=== PATIENT | female | born 1955 | race Caucasian/White ===

== ENCOUNTER 2021-02-08 09:24 | Outpatient (REF) | payer MEDICARE, MEDICAID, SELFPAY ==
[2021-02-08 11:39] LABS: Estimated Average Glucose 114 mg/dL; Hemoglobin A1c % 5.6 %
[2021-02-08 11:43] LABS: Alanine Aminotransferase 12 U/L (0-31); Anion Gap 19 (12-20); Aspartate Amino Transferase 15 U/L (5-31); Blood Urea Nitrogen 17 mg/dL (9-16); Carbon Dioxide 22 mmol/L (22-29); Chloride 104 mmol/L (96-108); Cholesterol 197 mg/dL; Estimated Glomerular Filt Rate > 60; Glucose Fasting 109 mg/dL (60-99); HDL Cholesterol 60 mg/dL; LDL Cholesterol Calculated 118 mg/dl; Potassium 4.8 mmol/L (3.3-5.1); Sodium 140 mmol/L (135-145); Triglycerides 97 mg/dL
[2021-02-08 12:06] LABS: Vitamin D 25-OH Total 24.8 ng/mL (>30)
== END 2021-02-08 09:25 | disposition home or self-care (01) ==
LOC: HO.HMGCLDS 09:24
PROVIDERS: PCP Internal Medicine; Visit Provider Internal Medicine
DX: I10 Essential (primary) hypertension (principal); R73.01 Impaired fasting glucose; E78.5 Hyperlipidemia, unspecified; E55.9 Vitamin D deficiency, unspecified; K58.0 Irritable bowel syndrome with diarrhea; F41.9 Anxiety disorder, unspecified
CPT/HCPCS: 36415; 80048; 80061; 82306; 83036; 84450; 84460

== ENCOUNTER 2021-03-15 08:16 | Outpatient (REF) | payer MEDICARE, MEDICAID, SELFPAY ==
--- NOTE | 2021-03-15 08:26 | ECG_ITS ---
Test Reason : HTN Blood Pressure : / mmHG Vent. Rate : 090 BPM Atrial Rate : 090 BPM P-R Int : 172 ms QRS Dur : 096 ms QT Int : 382 ms P-R-T Axes : 040 032 -01 degrees QTc Int : 467 ms Normal sinus rhythm Normal ECG When compared with ECG of 05-APR-2016 12:14, No significant change was found Referred By: Yasmin Wagner Electronically Signed By:CHRISSY DAI
[2021-03-15 09:22] LABS: MANUAL DIFF FLAG NO
[2021-03-15 09:30] LABS: Basophils Percent Auto 0.6 % (0-2); Eosinophils Absolute Auto 0.1 X10*3/uL (0.0-0.4); Eosinophils Percent Auto 0.8 % (0-4); Hematocrit 41.6 % (37-47); Hemoglobin 12.7 g/dl (12.0-16.0); Imm Gran Abs Auto 0.02 X10*3/uL (0.00-0.03); Imm Gran Pct Auto 0.3 % (0.0-0.4); Lymphocytes Absolute Auto 1.8 X10*3/uL (1.2-4.9); Lymphocytes Percent Auto 28.2 % (20-40); Mean Corpuscular HGB Conc 30.5 g/dl (31.0-35.0); Mean Corpuscular Hemoglobin 29.1 pg (27.0-33.0); Mean Corpuscular Volume 95.2 fL (80-98); Mean Platelet Volume 10.9 fL (9.4-12.3); Monocytes Absolute Auto 0.5 X10*3/uL (0.1-1.2); Monocytes Percent Auto 7.5 % (2-11); Neutrophils Absolute Auto 4.1 X10*3/uL (2.0-8.3); Neutrophils Percent Auto 62.6 % (45-73); Platelet Count 280 X10*3/uL (160-400); Red Blood Count 4.37 X10*6/uL (4.20-5.50); Red Cell Distribution Width 13.3 % (11.0-16.0); White Blood Count 6.5 X10*3/uL (4.8-10.8)
[2021-03-15 10:00] LABS: Anion Gap 16 (12-20); Blood Urea Nitrogen 18 mg/dL (9-16); Calcium 9.7 mg/dL (8.4-10.2); Carbon Dioxide 25 mmol/L (22-29); Chloride 104 mmol/L (96-108); Estimated Glomerular Filt Rate > 60; Glucose Fasting 114 mg/dL (60-99); Sodium 140 mmol/L (135-145)
[2021-03-15 10:07] LABS: Estimated Average Glucose 117 mg/dL; Hemoglobin A1c % 5.7 %
== END 2021-03-15 08:17 | disposition home or self-care (01) ==
LOC: HO.LAB 08:16
PROVIDERS: PCP Internal Medicine; Visit Provider Internal Medicine
DX: Z01.818 Encounter for other preprocedural examination (principal); I10 Essential (primary) hypertension; R73.01 Impaired fasting glucose; G47.33 Obstructive sleep apnea (adult) (pediatric)
CPT/HCPCS: 36415; 80048; 83036; 85025; 93005

== ENCOUNTER 2021-06-01 08:04 | Outpatient (REF) | payer MEDICARE, MEDICAID, SELFPAY ==
--- NOTE | ~2021-06-01 | XR_ITS ---
EXAMINATION: XR KNEE, LEFT XR KNEE, RIGHT XR KNEES, STANDING CLINICAL INFORMATION: Pain. COMPARISON: 02/15/2019 TECHNIQUE: AP standing view of both knees as well as patellar and lateral views of each knee. FINDINGS: There is again noted to be severe degenerative change of both knees with narrowing of the medial joint space compartments to a large degree with marginal spurring, left greater right. No acute fracture or dislocation is evident. There is significant narrowing with prominent spurring of the left patellofemoral joint. No left knee effusion. There is prominent spurring with some joint space narrowing involving the right patellofemoral. No effusion. XR/XR knee standing BI IMPRESSION: Stable significant tricompartment degenerative change each knee as described.
--- NOTE | ~2021-06-01 | XR_ITS ---
EXAMINATION: XR KNEE, LEFT XR KNEE, RIGHT XR KNEES, STANDING CLINICAL INFORMATION: Pain. COMPARISON: 02/15/2019 TECHNIQUE: AP standing view of both knees as well as patellar and lateral views of each knee. FINDINGS: There is again noted to be severe degenerative change of both knees with narrowing of the medial joint space compartments to a large degree with marginal spurring, left greater right. No acute fracture or dislocation is evident. There is significant narrowing with prominent spurring of the left patellofemoral joint. No left knee effusion. There is prominent spurring with some joint space narrowing involving the right patellofemoral. No effusion. XR/XR knee LT 2V IMPRESSION: Stable significant tricompartment degenerative change each knee as described.
--- NOTE | ~2021-06-01 | XR_ITS ---
EXAMINATION: XR KNEE, LEFT XR KNEE, RIGHT XR KNEES, STANDING CLINICAL INFORMATION: Pain. COMPARISON: 02/15/2019 TECHNIQUE: AP standing view of both knees as well as patellar and lateral views of each knee. FINDINGS: There is again noted to be severe degenerative change of both knees with narrowing of the medial joint space compartments to a large degree with marginal spurring, left greater right. No acute fracture or dislocation is evident. There is significant narrowing with prominent spurring of the left patellofemoral joint. No left knee effusion. There is prominent spurring with some joint space narrowing involving the right patellofemoral. No effusion. XR/XR knee RT 2V IMPRESSION: Stable significant tricompartment degenerative change each knee as described.
== END 2021-06-01 08:05 | disposition home or self-care (01) ==
LOC: HO.HOSX 08:04
PROVIDERS: Visit Provider Orthopaedic Surgery
DX: M17.0 Bilateral primary osteoarthritis of knee (principal)
CPT/HCPCS: 20610; 73560; 73565; 99212; J1040

== ENCOUNTER 2021-12-22 13:39 | Outpatient (REF) | payer MEDICARE, MEDICAID, SELFPAY ==
--- NOTE | ~2021-12-22 | MM_ITS ---
EXAMINATION: MM SCREENING DIGITAL BREAST TOMOSYNTHESIS, BILATERAL CLINICAL INFORMATION: Screening. Asymptomatic. The lifetime risk of breast cancer based on the Tyrer-Cuzick Model is 9%. COMPARISON: Mammography: 01/16/2020, 03/28/2017, 01/20/2016 TECHNIQUE: Digital breast tomosynthesis is performed in both the craniocaudal and mediolateral oblique views along with computer-aided detection (CAD). Synthesized 2D images are generated from the tomosynthesis. Additional right MLO view is provided. FINDINGS: There are scattered areas of fibroglandular density (ACR BI-RADS breast composition Category b). There are no significant masses, abnormal calcifications, or other abnormalities. Background fibroglandular densities and scattered benign nodularity are similar to prior studies. No developing density. No significant changes. MM/MM tomosynthesis screening BI IMPRESSION: No significant changes from prior studies. ASSESSMENT: BI-RADS 2: Benign RECOMMENDATION: Routine annual mammography screening. This patient's information was entered into a reminder system with a target due date for their next mammogram.
== END 2021-12-22 13:40 | disposition home or self-care (01) ==
LOC: HO.MAMMO 13:39
PROVIDERS: PCP Internal Medicine; Visit Provider Internal Medicine
DX: Z12.31 Encounter for screening mammogram for malignant neoplasm of breast (principal)
CPT/HCPCS: 77063; 77067

== ENCOUNTER → 2022-02-14 08:55 | Outpatient (BNVA) | payer MEDICARE, MEDICAID, SELFPAY | PROVIDERS: PCP Internal Medicine; Visit Provider Physician Assistant | DX: M17.0 Bilateral primary osteoarthritis of knee (principal) | CPT/HCPCS: 20610; 99212; J1040 ==

== ENCOUNTER → 2022-10-03 10:32 | Outpatient (BNVA) | payer MEDICARE, MEDICAID, SELFPAY | PROVIDERS: PCP Internal Medicine; Visit Provider Orthopaedic Surgery | DX: M17.0 Bilateral primary osteoarthritis of knee (principal); E66.01 Morbid (severe) obesity due to excess calories; Z68.43 Body mass index [BMI] 50.0-59.9, adult | CPT/HCPCS: 20610; 99212; J1100 ==

== ENCOUNTER 2022-12-28 12:42 | Outpatient (REF) | payer MEDICARE, MEDICAID, SELFPAY ==
--- NOTE | ~2022-12-28 | MM_ITS ---
EXAMINATION: MM SCREENING DIGITAL BREAST TOMOSYNTHESIS, BILATERAL CLINICAL INFORMATION: Screening. Asymptomatic. Family history breast cancer, sister. The lifetime risk of breast cancer based on the Tyrer-Cuzick Model is 12%. COMPARISON: Mammography: 12/22/2021, 01/16/2020, 03/28/2017 TECHNIQUE: Digital breast tomosynthesis is performed in both the craniocaudal and mediolateral oblique views along with computer-aided detection (CAD). Synthesized 2D images are generated from the tomosynthesis. Additional right CC view is provided. FINDINGS: There are scattered areas of fibroglandular density (ACR BI-RADS breast composition Category b). There are no significant masses, abnormal calcifications, or other abnormalities. Parenchymal pattern is similar to prior studies. There is no developing density or architectural abnormality. The axilla and skin contours are unremarkable. No significant changes. MM/MM tomosynthesis screening BI IMPRESSION: No mammographic evidence of malignancy. ASSESSMENT: BI-RADS 1: Negative RECOMMENDATION: Routine annual mammography screening. This patient's information was entered into a reminder system with a target due date for their next mammogram.
== END 2022-12-28 12:43 | disposition home or self-care (01) ==
LOC: HO.MAMMO 12:42
PROVIDERS: PCP Internal Medicine; Visit Provider Internal Medicine
DX: Z12.31 Encounter for screening mammogram for malignant neoplasm of breast (principal)
CPT/HCPCS: 77063; 77067

== ENCOUNTER 2023-01-26 10:40 | Outpatient (REF) | payer MEDICARE, MEDICAID, SELFPAY ==
[2023-01-26 14:57] LABS: Alanine Aminotransferase 9 U/L (0-31); Anion Gap 17 (12-20); Aspartate Amino Transferase 15 U/L (5-31); Blood Urea Nitrogen 17 mg/dL (9-16); Calcium 9.6 mg/dL (8.4-10.2); Carbon Dioxide 24 mmol/L (22-29); Chloride 105 mmol/L (96-108); Cholesterol 195 mg/dL; Estimated Glomerular Filt Rate 59; Glucose Fasting 123 mg/dL (60-99); HDL Cholesterol 60 mg/dL; LDL Cholesterol Calculated 118 mg/dl; Potassium 4.5 mmol/L (3.3-5.1); Sodium 141 mmol/L (135-145); Triglycerides 89 mg/dL
[2023-01-26 15:13] LABS: Vitamin D 25-OH Total 24.2 ng/mL (>30)
== END 2023-01-26 10:41 | disposition home or self-care (01) ==
LOC: HO.HMGCLDS 10:40
PROVIDERS: PCP Internal Medicine; Visit Provider Internal Medicine
DX: Z00.01 Encounter for general adult medical examination with abnormal findings (principal); E66.01 Morbid (severe) obesity due to excess calories; F41.8 Other specified anxiety disorders; I10 Essential (primary) hypertension; M17.0 Bilateral primary osteoarthritis of knee; M85.852 Other specified disorders of bone density and structure, left thigh; R73.01 Impaired fasting glucose
CPT/HCPCS: 36415; 80048; 80061; 82306; 84450; 84460

== ENCOUNTER 2023-06-02 11:06 | Emergency (ER) | payer MEDICARE, MEDICAID, SELFPAY ==
--- NOTE | ~2023-06-02 | US_ITS ---
EXAMINATION: US VENOUS ULTRASOUND WITH DOPPLER LOWER EXTREMITY, BILATERAL CLINICAL INFORMATION: Pain COMPARISON: None available. TECHNIQUE: Ultrasound of the deep veins is performed from the hip to the calf with compression sonography and color and pulse Doppler assessment. Spectral analysis with color-flow imaging is performed. FINDINGS: RIGHT: There is normal venous compression and respiratory variation and augmented flow. The visualized common femoral vein, superficial femoral vein, profunda femoral vein, popliteal vein, and the trifurcation region shows no evidence of deep venous thrombosis. The peroneal was not identified limiting assessment. There is no significant popliteal fossa cyst. LEFT: There is normal venous compression and respiratory variation and augmented flow. The visualized common femoral vein, superficial femoral vein, profunda femoral vein, popliteal vein, and the trifurcation region shows no evidence of deep venous thrombosis. The peroneal vein was not identified limiting assessment. There is no significant popliteal fossa cyst. US/US venous duplex LE BI IMPRESSION: No DVT demonstrated in the visualized bilateral lower extremity, however the peroneal veins were not identified limiting evaluation. If the patient's symptoms persist, followup ultrasound in 5 days 7 days might be of value to exclude proximal propagation from a non-visualized calf vein.
--- NOTE | ~2023-06-02 | CT_ITS ---
EXAMINATION: CT ANGIOGRAM OF THE CHEST WITH AND WITHOUT CONTRAST (CT PULMONARY ANGIOGRAM FOR PE) CLINICAL INFORMATION: Shortness of breath. COMPARISON: None available. TECHNIQUE: Prior to contrast administration, noncontrast localization images were obtained. Subsequently, multidetector volumetric imaging was performed from the thoracic inlet to below the diaphragms following the administration of 75 mL Omnipaque 350 intravenous contrast. No contrast reaction reported Sagittal, coronal, and MIP oblique sagittal reformatted images were obtained on the CT workstation, uploaded to PACS, and reviewed. This CT examination was performed using dose optimization techniques as appropriate, variously including the following: *Automated exposure control *Adjustment of mA and/or kV according to patient size (this includes techniques or standardized protocols for targeted exams where dose is matched to indication/reason for exam; i.e. extremities or head) *Use of iterative reconstruction technique Total exam dose-length product 468 mGy-cm FINDINGS: QUALITY OF STUDY/CONTRAST BOLUS: Suboptimal. PULMONARY ARTERIES: Evaluation is somewhat limited due to patient body habitus and motion. No central pulmonary emboli. No large segmental pulmonary emboli. THORACIC AORTA: No aneurysm. LUNG: Small focal airspace opacity in the posterior right lower lobe, axial image 226 series 6. 0.2 cm solid pulmonary nodule in the right middle lobe, axial image 191 series 6. Small calcified granuloma in the right upper lobe. 0.8 cm pleural-based nodule in the left apex, axial image 18 series 6. No dense consolidation or significant groundglass disease. Dependent subsegmental atelectasis. Central airways are patent. PLEURA: No pleural effusion or pneumothorax. MEDIASTINUM: Cardiomegaly. No mediastinal or hilar lymphadenopathy. No pericardial effusion. CORONARY ARTERY CALCIFICATION: Coronary artery calcifications are seen. CHEST WALL/AXILLA: No axillary or internal mammary lymphadenopathy. OSSEOUS STRUCTURES: No acute or suspicious osseous abnormality. UPPER ABDOMEN: Decreased attenuation of liver parenchyma suggesting hepatic steatosis. There is a 2.8 cm simple cyst in the posterior right hepatic lobe. Heterogeneous attenuation of the spleen, likely physiologic related with early timing of IV contrast postsurgical changes from gastric sleeve with a small to moderate size hiatal hernia. No reflux of contrast into the hepatic veins to suggest elevated right heart pressures. CT/CT angio chest PE protocol IMPRESSION: 1. Evaluation is somewhat limited due to patient body habitus and motion. However, accounting for these limitations, no central pulmonary emboli nor large segmental emboli are identified. 2. Small focal airspace opacity in the posterior right lower lobe is likely related with atelectasis and motion artifact, however an early infiltrate cannot be excluded in the appropriate clinical context. 3. Solid pulmonary nodules, largest in the left apex measuring 0.8 cm. Assuming patient has no history of malignancy, recommend follow-up per Fleischner Society recommendations. According to the UPDATED 2017 Fleischner Society recommendations, the advised followup imaging for multiple solid nodules, the largest measuring 6 mm or greater, is: LOW RISK PATIENT: CT at 3-6 months, then consider CT at 18-24 months. HIGH RISK PATIENT: CT at 3-6 months, then at 18-24 months. 4. Cardiomegaly. 5. Hepatic steatosis. 6. Small to moderate size hiatal hernia with postoperative changes from prior gastric sleeve procedure. VTE: negative
--- NOTE | 2023-06-02 11:09 | ECG_ITS ---
Test Reason : CP Blood Pressure : / mmHG Vent. Rate : 098 BPM Atrial Rate : 098 BPM P-R Int : 182 ms QRS Dur : 098 ms QT Int : 358 ms P-R-T Axes : 043 008 007 degrees QTc Int : 457 ms Normal sinus rhythm Normal ECG When compared with ECG of 15-MAR-2021 08:45, No significant change was found Referred By: Generic ED Physician Electronically Signed By:Clifford Wills
[2023-06-02 12:36] VITALS: BP 159/80; PULSE 96; RESP 23; O2SAT 97; BMI 54.7
[2023-06-02 12:41] VITALS: PULSE 97; RESP 22; O2SAT 96
[2023-06-02 13:44] LABS: MANUAL DIFF FLAG NO
[2023-06-02 13:49] LABS: Basophils Percent Auto 0.4 % (0-2); Hematocrit 40.4 % (37.0-47.0); Hemoglobin 12.4 g/dl (12.0-16.0); Imm Gran Abs Auto 0.03 X10*3/uL (0.00-0.03); Imm Gran Pct Auto 0.3 % (0.0-0.4); Lymphocytes Absolute Auto 1.1 X10*3/uL (1.2-4.9); Lymphocytes Percent Auto 11.1 % (20-40); Mean Corpuscular HGB Conc 30.7 g/dl (31.0-35.0); Mean Corpuscular Hemoglobin 27.8 pg (27.0-33.0); Mean Corpuscular Volume 90.6 fL (80.0-98.0); Mean Platelet Volume 10.8 fL (9.4-12.3); Monocytes Absolute Auto 0.5 X10*3/uL (0.1-1.2); Monocytes Percent Auto 4.8 % (2-11); Neutrophils Absolute Auto 8.6 x10*3/uL (2.0-8.3); Neutrophils Percent Auto 83.4 % (45-73); Platelet Count 279 X10*3/uL (160-400); Red Blood Count 4.46 X10*6/uL (4.20-5.50); Red Cell Distribution Width 13.7 % (11.0-16.0); White Blood Count 10.3 X10*3/uL (4.8-10.8)
[2023-06-02 13:57] LABS: INTERNATIONAL NORM RATIO 1.1 (0.9-1.1)
[2023-06-02 13:59] LABS: Partial Thromboplastin Time 33.7 SEC (26.0-36.4)
[2023-06-02 14:05] LABS: Alanine Aminotransferase 10 U/L (0-31); Albumin Level 3.9 g/dL (3.5-5.0); Alkaline Phosphatase 73 U/L (39-117); Anion Gap 13 (12-20); Aspartate Amino Transferase 14 U/L (5-31); Bilirubin Total 0.3 mg/dL (0.0-1.0); Blood Urea Nitrogen 17 mg/dL (9-16); Calcium 9.5 mg/dL (8.4-10.2); Carbon Dioxide 24 mmol/L (22-29); Chloride 105 mmol/L (96-108); Creatinine Clr Calc Pharmacy 94.4; Estimated Glomerular Filt Rate > 60; Glucose Random 118 mg/dL (60-115); Magnesium 2.1 mg/dL (1.6-2.6); Potassium 4.4 mmol/L (3.3-5.1); Sodium 138 mmol/L (135-145); Total Protein 7.4 g/dL (6.5-8.0)
[2023-06-02 14:25] LABS: Troponin-I High Sensitivity < 2.7 ng/L (<3.5-17.0)
[2023-06-02 16:24] VITALS: BP 129/77; PULSE 90; RESP 18; TEMP 36.2; O2SAT 94
--- NOTE | 2023-06-02 16:49 | ED.GENADULT ---
HPI - General Adult General Chief complaint: Dyspnea Stated complaint: irregular heartbeat Time Seen by Provider: 06/02/23 16:01 Source: patient, RN notes reviewed and old records reviewed Mode of arrival: ambulatory Limitations: no limitations History of Present Illness HPI narrative: 68-year-old female with past medical history significant for morbid obesity, hypertension, obstructive sleep apnea presents for evaluation of shortness of breath The patient reports that she was feeling short of breath earlier. She has a ?heart rate monitor at home. She states that it was climbing a she had an abnormal rhythm or a fast rhythm and recommend that she call her doctor The patient called her doctor and was referred to emergency department The time of my evaluation she states that she occasionally has some shortness of breath but overall feels well She does admit to increased shortness of breath when lying flat on her back She denies any chest pain Patient does admit to increased left leg swelling for the last 2-3 days And a history of DVT/PE or risk factors for same Related Data Home Medications Medication Instructions Recorded Confirmed cholecalciferol (vitamin D3) 25 25 mcg PO DAILY 02/16/21 12/27/21 mcg (1,000 unit) capsule dicyclomine 10 mg capsule 10 mg PO QID PRN IBS 03/29/21 12/27/21 glucosamine HCl PO 06/01/21 12/27/21 Previous Rx's Medication Instructions Recorded citalopram 20 mg tablet 20 mg PO DAILY #90 tabs 03/16/23 lisinopril 20 mg tablet 20 mg PO QAM #90 tabs 04/10/23 Allergies Allergy/AdvReac Type Severity Reaction Status Date / Time codeine [CODEINE] Allergy Severe NAUSEA & Verified 01/26/23 10:09 SEVERE VOMITING, stomach upset Review of Systems Constitutional: Constitutional: Reports as per HPI, Denies chills, Denies fatigue, Denies fever(s) and Denies headache(s) ENT: Denies headache(s) Respiratory: Respiratory: Denies cough Gastrointestinal: Gastrointestinal: Denies abdominal pain, Denies constipation and Denies vomiting Genitourinary: Genitourinary: Denies dysuria Neurologic: Denies headache(s) and Denies focal weakness Endocrine: Endocrine: Denies fatigue [facility] Past Medical History Medical History (Updated 06/02/23 @ 18:14 by [place]) Cataracts, bilateral Essential hypertension History of COVID-19 Impaired fasting glucose Mixed anxiety and depressive disorder Morbid obesity due to excess calories DENISE (obstructive sleep apnea) Osteopenia of left hip Vitamin D deficiency Surgical History History of total hip replacement Hx of gastric bypass Family History Family History Father No problems noted. Mother No problems noted. Maternal Aunt Mental health disorder Social History Social History Housing: House Alcohol intake: never Patient Tobacco Use Status: Never used Tobacco Smoked in Last 30 Days: No e-Cigarette/Vaping Use: Never Used Use of substances other than those prescribed or required for medical reasons: No Advance Directives: No service: No Current occupational status: retired Cognitive needs: No Hearing needs: No Vision needs: No Physical Exam ED Vital Signs: Vital Signs - 24 hr 06/02/23 12:36 06/02/23 12:41 06/02/23 16:24 Temperature 97.1 F Pulse Rate 96 97 90 Respiratory Rate 23 H 22 H 18 Blood Pressure 159/80 H 129/77 Pulse Oximetry 97 96 94 Oxygen Delivery Method Room Air Room Air Room Air BMI result Body Mass Index 54.7 Const General: healthy appearing, comfortable, no acute distress, alert and awake Nutritional Appearance: well nourished Orientation/consciousness: patient oriented x3 HENMT Head: Yes normocephalic and Yes atraumatic Eyes Eyelids: Yes eyelids normal Conjunctivae: conjunctivae normal Sclerae: sclerae normal Corneas: corneas normal Pupils: Equal, round and reactive pupils present EOM: EOMs intact bilaterally Neck Neck: Yes full ROM Resp Effort & Inspection: normal respiratory effort, able to speak in complete sentences, no audible wheezes and not labored Auscultation: clear to auscultation bilaterally Cardio Rate: regular rate Rhythm: regular rhythm Skin General skin exam: elasticity normal Neuro General: patient oriented x3 Cranial nerves: Yes Equal, round and reactive pupils present and Yes Bilaterally intact EOM present Cognition (Neuro): normal cognition Extrem Other: Moving all extremities well without any obvious deformities Course Reevaluation(s) Reevaluation #1: Patient's ultrasound negative for DVT, the chest CT did not show any evidence of PE. His lung 100 noted which the patient will be informed the so she can get appropriate follow-up. Time: 18:09 Medications Administered Discontinued Medications Generic Name Dose Route Start Last Admin Trade Name Pam PRN Reason Stop Dose Admin Acetaminophen 975 mg 06/02/23 16:34 06/02/23 17:12 Acetaminophen 325 Mg Tablet PO 06/02/23 16:35 975 mg ONCE ONE Administration Iohexol 100 ml 06/02/23 17:04 06/02/23 17:04 Iohexol 350 Mg/Ml 100 Ml Infus..Btl IV 06/02/23 17:05 75 ml ONCE ONE Administration Medical Decision Making Medical Decision Making [facility] Narrative: 68-year-old female past medical history significant for morbid obesity, hypertension presents for evaluation shortness of breath. She was tachycardic on arrival but her EKG was a sinus rhythm without ectopy. Patient does have unilateral swelling the left common ultrasound the lower extremities pedal get a CT of the chest given the shortness of breath, tachycardia and unilateral leg swelling. The patient's lab work was reassuring Differential Diagnosis Differential Diagnoses: The differential diagnosis associated with the presentation includes Shortness of breath Cardiac arrhythmia Atrial fibrillation Congestive heart failure PE Pneumonia Bronchitis Viral syndrome Admission/Observation Consideration of admission/observation: Escalation of care including admission/observation considered No evidence of PE and the vitals are stable, so no indication for admission at this time Lab Data [facility] Lab Attestation statement: I reviewed the patient's lab results. No significant leukocytosis with a white count of 10.3, no significant anemia. Platelet count normal of 279. Electrolytes within normal limits. BUN slightly elevated to 17 but creatinine normal at 0.85. Random glucose of 118 06/02/23 13:30 06/02/23 13:30 Labs: Lab Results 06/02/23 06/02/23 06/02/23 Range/Units 13:30 13:30 13:30 WBC 10.3 (4.8-10.8) X10*3/uL RBC 4.46 (4.20-5.50) X10*6/uL Hgb 12.4 (12.0-16.0) g/dl Hct 40.4 (37.0-47.0) % MCV 90.6 (80.0-98.0) fL MCH 27.8 (27.0-33.0) pg MCHC 30.7 L (31.0-35.0) g/dl RDW 13.7 (11.0-16.0) % Plt Count 279 (160-400) X10*3/uL MPV 10.8 (9.4-12.3) fL Immature Gran % (Auto) 0.3 (0.0-0.4) % Neut % (Auto) 83.4 H (45-73) % Lymph % (Auto) 11.1 L (20-40) % [place] % (Auto) 4.8 (2-11) % Eos % (Auto) 0.0 (0-4) % Baso % (Auto) 0.4 (0-2) % Lymph # (Auto) 1.1 L (1.2-4.9) X10*3/uL [place] # (Auto) 0.5 (0.1-1.2) X10*3/uL Eos # (Auto) 0.0 (0.0-0.4) X10*3/uL Baso # (Auto) 0.0 (0.0-0.2) X10*3/uL Abs Immat Gran (auto) 0.03 (0.00-0.03) X10*3/uL Absolute Neuts (auto) 8.6 H (2.0-8.3) x10*3/uL Absolute Nucleated RBC 0.000 (0.0-0.012) X10*3/uL Nucleated RBC % (auto) 0.0 (0.0-0.2) /100WBC PT 13.0 (10.0-13.1) SEC INR 1.1 (0.9-1.1) APTT 33.7 (26.0-36.4) SEC Sodium 138 (135-145) mmol/L Potassium 4.4 (3.3-5.1) mmol/L Chloride 105 (96-108) mmol/L Carbon Dioxide 24 (22-29) mmol/L Anion Gap 13 (12-20) BUN 17 H (9-16) mg/dL Creatinine 0.85 (0.5-1.4) mg/dL Estim Creat Clear Calc 94.4 Estimated GFR > 60 Random Glucose 118 H (60-115) mg/dL Calcium 9.5 (8.4-10.2) mg/dL Magnesium 2.1 (1.6-2.6) mg/dL Total Bilirubin 0.3 (0.0-1.0) mg/dL AST 14 (5-31) U/L ALT 10 (0-31) U/L Alkaline Phosphatase 73 (39-117) U/L Troponin I High Sens (<3.5-17.0) ng/L Total Protein 7.4 (6.5-8.0) g/dL Albumin 3.9 (3.5-5.0) g/dL 06/02/23 Range/Units 13:30 WBC (4.8-10.8) X10*3/uL RBC (4.20-5.50) X10*6/uL Hgb (12.0-16.0) g/dl Hct (37.0-47.0) % MCV (80.0-98.0) fL MCH (27.0-33.0) pg MCHC (31.0-35.0) g/dl RDW (11.0-16.0) % Plt Count (160-400) X10*3/uL MPV (9.4-12.3) fL Immature Gran % (Auto) (0.0-0.4) % Neut % (Auto) (45-73) % Lymph % (Auto) (20-40) % [place] % (Auto) (2-11) % Eos % (Auto) (0-4) % Baso % (Auto) (0-2) % Lymph # (Auto) (1.2-4.9) X10*3/uL [place] # (Auto) (0.1-1.2) X10*3/uL Eos # (Auto) (0.0-0.4) X10*3/uL Baso # (Auto) (0.0-0.2) X10*3/uL Abs Immat Gran (auto) (0.00-0.03) X10*3/uL Absolute Neuts (auto) (2.0-8.3) x10*3/uL Absolute Nucleated RBC (0.0-0.012) X10*3/uL Nucleated RBC % (auto) (0.0-0.2) /100WBC PT (10.0-13.1) SEC INR (0.9-1.1) APTT (26.0-36.4) SEC Sodium (135-145) mmol/L Potassium (3.3-5.1) mmol/L Chloride (96-108) mmol/L Carbon Dioxide (22-29) mmol/L Anion Gap (12-20) BUN (9-16) mg/dL Creatinine (0.5-1.4) mg/dL Estim Creat Clear Calc Estimated GFR Random Glucose (60-115) mg/dL Calcium (8.4-10.2) mg/dL Magnesium (1.6-2.6) mg/dL Total Bilirubin (0.0-1.0) mg/dL AST (5-31) U/L ALT (0-31) U/L Alkaline Phosphatase (39-117) U/L Troponin I High Sens < 2.7 (<3.5-17.0) ng/L Total Protein (6.5-8.0) g/dL Albumin (3.5-5.0) g/dL Independent Interpretation I performed an independent interpretation of an: EKG (Normal sinus rhythm with a rate of 98 beats per minute. No ectopy or ST changes) Radiology Impression Discussion of test interpretation with radiology: I have reviewed the radiologist's reading. (Read no evidence of PE. 8 mm pulmonary nodule) Discharge Plan Discharge Clinical Impression: Acute dyspnea Patient Disposition: Home, Self-Care Instructions: Dyspnea (ED) Additional Instructions: Your workup in the emergency department today was reassuring. Your ultrasound did not show any evidence of blood clots pain Your CT scan of your chest showed no evidence of blood clots but did show an 8 mm lung nodule This needs to be followed up with your primary doctor Follow-up with cardiology, as you did not have any irregular heartbeat in the ER but he felt from a Holter monitor Prescriptions: No Action citalopram 20 mg tablet 20 mg PO DAILY Qty: 90 1RF lisinopril 20 mg tablet 20 mg PO QAM Qty: 90 1RF cholecalciferol (vitamin D3) 25 mcg (1,000 unit) capsule 25 mcg PO DAILY dicyclomine 10 mg capsule 10 mg PO QID PRN (Reason: IBS) glucosamine HCl PO Referrals: Clifford Wills MD [Physician] - (? holter monitor for irregular heartbeat)
[2023-06-02] MEDS: iohexoL 350 MG/ML 100 ML INFUS..BTL IV (17:04)
[2023-06-02] MEDS: Acetaminophen 325 MG TABLET 975 MG PO (17:12)
== END 2023-06-02 18:24 | disposition home or self-care (01) ==
PROVIDERS: Physician Assistant Medical; Emergency Provider Emergency Medicine; PCP Internal Medicine
DX: R06.00 Dyspnea, unspecified (principal); R06.02 Shortness of breath; R00.0 Tachycardia, unspecified; R60.0 Localized edema; I10 Essential (primary) hypertension; E66.01 Morbid (severe) obesity due to excess calories; Z68.43 Body mass index [BMI] 50.0-59.9, adult; Z79.899 Other long term (current) drug therapy
CPT/HCPCS: 36415; 71275; 80053; 83735; 84484; 85025; 85610; 85730; 93005; 93970; 99284; 99285; Q9967

== ENCOUNTER → 2023-06-02 11:09 | Outpatient (BNV) | payer MEDICARE, MEDICAID, SELFPAY | PROVIDERS: Emergency Provider Emergency Medicine; PCP Internal Medicine; Visit Provider Internal Medicine Cardiovascular Disease | DX: R07.9 Chest pain, unspecified (principal) | CPT/HCPCS: 93010 ==

== ENCOUNTER 2023-06-19 10:09 | Outpatient (REF) | payer MEDICARE, MEDICAID, SELFPAY ==
--- NOTE | ~2023-06-19 | XR_ITS ---
EXAMINATION: XR KNEE STANDING BILATERAL XR KNEE RIGHT XR KNEE LEFT CLINICAL INFORMATION: Knee pain. COMPARISON: 05/02/2021. TECHNIQUE: AP standing view of both knees. Right knee, sunrise and lateral views. Left knee, sunrise and lateral views. FINDINGS: AP standing view: Large body habitus. Chronic osteoarthritis of both knees. There is chronic narrowing of medial more so than lateral tibiofemoral joint spaces with genu varus deformity. The joint space loss at the medial compartment of the left knee has worsened. Left knee: No significant change in appearance of the severe tricompartmental osteoarthritis with prominent osteophytes and subarticular sclerosis. The sunrise view shows patella to be well-positioned within the trochlear groove. No fracture or joint effusion. Right knee: Chronic severe tricompartmental osteoarthritis. As seen on the AP standing view, there is severe loss of the medial tibiofemoral joint space with zmyz-xv-zdiw contact and genu varus deformity. Otherwise, osteoarthritic deformity is not significantly changed since 06/01/2021. The patella is well-positioned within the trochlear groove. No fracture or joint effusion. XR/XR knee standing BI IMPRESSION: Chronic severe tricompartmental osteoarthritis of both knees. Findings include severe loss of medial tibiofemoral joint space of the left knee with yzmx-yk-odxb contact and genu varus deformity. Otherwise, no significant change in arthritis since 06/01/2021.
--- NOTE | ~2023-06-19 | XR_ITS ---
EXAMINATION: XR KNEE STANDING BILATERAL XR KNEE RIGHT XR KNEE LEFT CLINICAL INFORMATION: Knee pain. COMPARISON: 05/02/2021. TECHNIQUE: AP standing view of both knees. Right knee, sunrise and lateral views. Left knee, sunrise and lateral views. FINDINGS: AP standing view: Large body habitus. Chronic osteoarthritis of both knees. There is chronic narrowing of medial more so than lateral tibiofemoral joint spaces with genu varus deformity. The joint space loss at the medial compartment of the left knee has worsened. Left knee: No significant change in appearance of the severe tricompartmental osteoarthritis with prominent osteophytes and subarticular sclerosis. The sunrise view shows patella to be well-positioned within the trochlear groove. No fracture or joint effusion. Right knee: Chronic severe tricompartmental osteoarthritis. As seen on the AP standing view, there is severe loss of the medial tibiofemoral joint space with dyaj-os-gwog contact and genu varus deformity. Otherwise, osteoarthritic deformity is not significantly changed since 06/01/2021. The patella is well-positioned within the trochlear groove. No fracture or joint effusion. XR/XR knee LT 2V IMPRESSION: Chronic severe tricompartmental osteoarthritis of both knees. Findings include severe loss of medial tibiofemoral joint space of the left knee with qxez-gr-lqeb contact and genu varus deformity. Otherwise, no significant change in arthritis since 06/01/2021.
--- NOTE | ~2023-06-19 | XR_ITS ---
EXAMINATION: XR KNEE STANDING BILATERAL XR KNEE RIGHT XR KNEE LEFT CLINICAL INFORMATION: Knee pain. COMPARISON: 05/02/2021. TECHNIQUE: AP standing view of both knees. Right knee, sunrise and lateral views. Left knee, sunrise and lateral views. FINDINGS: AP standing view: Large body habitus. Chronic osteoarthritis of both knees. There is chronic narrowing of medial more so than lateral tibiofemoral joint spaces with genu varus deformity. The joint space loss at the medial compartment of the left knee has worsened. Left knee: No significant change in appearance of the severe tricompartmental osteoarthritis with prominent osteophytes and subarticular sclerosis. The sunrise view shows patella to be well-positioned within the trochlear groove. No fracture or joint effusion. Right knee: Chronic severe tricompartmental osteoarthritis. As seen on the AP standing view, there is severe loss of the medial tibiofemoral joint space with gyeo-fu-dwkr contact and genu varus deformity. Otherwise, osteoarthritic deformity is not significantly changed since 06/01/2021. The patella is well-positioned within the trochlear groove. No fracture or joint effusion. XR/XR knee RT 2V IMPRESSION: Chronic severe tricompartmental osteoarthritis of both knees. Findings include severe loss of medial tibiofemoral joint space of the left knee with hfnr-ke-xkbx contact and genu varus deformity. Otherwise, no significant change in arthritis since 06/01/2021.
== END 2023-06-19 10:10 | disposition home or self-care (01) ==
LOC: HO.HOSX 10:09
PROVIDERS: Visit Provider Orthopaedic Surgery
DX: M17.0 Bilateral primary osteoarthritis of knee (principal); E66.01 Morbid (severe) obesity due to excess calories
CPT/HCPCS: 20610; 73560; 73565; J1100

== ENCOUNTER 2023-06-19 11:25 | Outpatient (AMB) | payer MEDICARE, MEDICAID, SELFPAY ==
[2023-06-19 11:40] VITALS: BMI 54.7
--- NOTE | 2023-06-19 11:40 | MHC.OFFVIS ---
Intake Vital Signs 06/19/23 11:40 Height 5 ft 6 in Weight 339 lb BMI 54.7 Intake Visit Reasons: Ov- B/L OA of the knees last inj 10/03/22 Intake Note: Marcelino is a 68 year old female who presents today for a follow up of bilateral knee OA, Last Injection done 10/03/22. Pateint rpeorts that theese injections were helpful and she would like to repeat today Allergies codeine [CODEINE] Allergy (Severe, Verified 06/19/23 11:40) NAUSEA & SEVERE VOMITING, stomach upset HPI Ov- B/L OA of the knees last inj 10/03/22 HPI Details Marcelino is a 68 year old woman with bilateral knee OA. She has a history of steroid injections with good relief, lasting ~6-9 months on average she reports. She was last injected bilaterally on 10/03/22 and would like to repeat these [facility] Medical History Cataracts, bilateral Essential hypertension History of COVID-19 Impaired fasting glucose Mixed anxiety and depressive disorder Morbid obesity due to excess calories DENISE (obstructive sleep apnea) Osteopenia of left hip Vitamin D deficiency Surgical History History of total hip replacement Hx of gastric bypass Family History Father No problems noted. Mother No problems noted. Maternal Aunt Mental health disorder Social History Housing: House Alcohol intake: never Patient Tobacco Use Status: Never used Tobacco e-Cigarette/Vaping Use: Never Used service: No Current occupational status: retired Cognitive needs: No Hearing needs: No Vision needs: No Review of Systems Const All systems reviewed & are unremarkable except as noted in HPI and below Physical Exam Vital Signs: BMI result Body Mass Index 54.7 Const General: no acute distress and alert Orientation/consciousness: patient oriented x3 Neuro General: patient oriented x3 Extrem Other: Marcelino: TTP medial joint line predominantly Morbidly obese Psych Appearance: grossly normal Affect: normal affect Attitude: cooperative Office Procedures Joint Injection/Drain Joint Injection/Drain Details: Injected 1 mL of Decadron and 3 mL 1% lidocaine and 3 mL of 0.25% Marcaine. Site was prepped using aseptic technique. Patient tolerated the procedure well. Primary Site: right knee Secondary Site: left knee Approach Used: anterolateral Coding - Large joint - Glenohumeral/Tronchanteric Bursa/Intraarticular Procedure code (CPT) selection complete Results Reviewed Results Reviewed: 06/19/23 11:41 BUPivacaine MPF 0.25 % [Sensorcaine-MPF 0.25% 10 ML] 10 ml .ROUTE .STK-MED ONE Lidocaine HCl 2 % MPF [Xylocaine 2 % MPF] 5 ml .ROUTE .STK-MED ONE dexAMETHasone sod phosphate [Decadron] 4 mg .ROUTE .STK-MED ONE Assessment & Plan Assessment & Plan (1) Osteoarthritis of knees, bilateral: Code(s): M17.0 - Bilateral primary osteoarthritis of knee Qualifiers: Osteoarthritis type: primary Qualified Code(s): M17.0 - Bilateral primary osteoarthritis of knee Plan: This is a 67 year old woman with bilateral knee OA. She finds good relief from steroid injections and would like a repeat today. I discussed treatment options, she is not a surgical candidate at this time. I injected her bilateral knees today, which she tolerated well. I recommend she continue activity as tolerated and can follow up prn. (2) Morbid obesity due to excess calories: Code(s): E66.01 - Morbid (severe) obesity due to excess calories Plan: Current BMI 54.7 Plan Scribed for Melvin Pisano MD by Yadiel Chamberlain, medical esthetician, on 06/19/23 at 11:55 AM, EST. Orders: Orders XR knee LT 2V Today M25.569 - Pain in unspecified knee XR knee RT 2V Today M25.569 - Pain in unspecified knee XR knee standing BI Today M25.569 - Pain in unspecified knee Coding Level of Care Code Est Pt Level 3 (58886) Diagnoses Osteoarthritis of knees, bilateral M17.0 Osteoarthritis type: primary Morbid obesity due to excess calories E66.01 CPT Codes Coding - Large joint: 91898 - Large joint ([id number]) Coding - Joint 7: - Glenohumeral/Tronchanteric Bursa/Intraarticular ([id number])
== END 2023-06-19 12:38 | disposition home or self-care (01) ==
PROVIDERS: PCP Internal Medicine; Visit Provider Orthopaedic Surgery
DX: M17.0 Bilateral primary osteoarthritis of knee (principal); E66.01 Morbid (severe) obesity due to excess calories
CPT/HCPCS: 20610

== ENCOUNTER 2023-06-22 07:44 | Outpatient (AMB) | payer MEDICARE, MEDICAID, SELFPAY ==
--- NOTE | 2023-06-22 08:10 | A.OFFVIS_ITS ---
Intake Vital Signs 06/22/23 08:16 Height 5 ft 6 in Weight 335 lb 1.642 oz BMI 54.1 BP 140/60 H Blood Pressure Location Lt brachial Position Sitting Pulse 91 Pulse Source Pulse Oximeter Intake Visit Reasons: [facility] ED fu/Irregular Heartbeat Intake Note: [facility] Ed/ Irregular heart beat Signal Person Required: No Accompanied by: Self / Same As Patient Allergies codeine [CODEINE] Allergy (Severe, Verified 06/22/23 08:21) NAUSEA & SEVERE VOMITING, stomach upset Medication List - Last Reconciled 06/22/23 by Roseanne Newton DIE CAST OPERATOR-C cholecalciferol (vitamin D3) 25 mcg PO DAILY citalopram 20 mg PO DAILY dicyclomine 10 mg PO QID PRN glucosamine HCl PO lisinopril 20 mg PO QAM HPI [facility] ED fu/Irregular Heartbeat HPI Details Marcelino is a 68-year-old female with past medical history of morbid obesity, hypertension, impaired fasting glucose, obstructive sleep apnea, untreated who recently presented to the emergency room with report of shortness of breath and abnormal heart rhythm on her home blood pressure meter. ED evaluation showed no significant findings. She was referred to Cardiology for follow-up. Today she presents for cardiology consultation. She has no history of heart disease, no prior [place], cardiomyopathy, heart arrhythmias. She tells me she has been noticing shortness of breath recently. She admits to being mostly sedentary but does do swimming at the [facility]. She ambulates with a wheeling walker. She denies any PND, orthopnea. At the day of her ER visit she had some swelling in her left ankle which has since resolved. That day she noticed some heaviness in her chest and ruled out for ACS. No other reports of chest pain or pressure. No presyncope, syncope, falls. Tells me she was unable to tolerate a CPAP mask. Reports compliance with her meds. Has never smoked. Has no pulmonary diagnosis. Denies any alcohol use. [facility] Medical History Cataracts, bilateral Essential hypertension History of COVID-19 Impaired fasting glucose Mixed anxiety and depressive disorder Morbid obesity due to excess calories DENISE (obstructive sleep apnea) Osteopenia of left hip Vitamin D deficiency Surgical History History of total hip replacement Hx of gastric bypass Family History Father No problems noted. Mother No problems noted. Maternal Aunt Mental health disorder Social History Housing: House Alcohol intake: never Patient Tobacco Use Status: Never used Tobacco e-Cigarette/Vaping Use: Never Used service: No Current occupational status: retired Cognitive needs: No Hearing needs: No Vision needs: No Review of Systems Const Denies chills, Denies daytime sleepiness, Denies fatigue, Denies fever(s), Denies frequent falls, Denies night sweats, Denies snoring, Denies weakness, Denies weight gain and Denies weight loss Eyes Denies loss of vision ENT Denies dizziness and Denies hearing loss Card Denies chest pain, Denies chest pain with activity, Denies syncope, Denies rapid heart rate, Denies edema, Denies claudication, Denies leg edema, Denies lightheadedness, Denies palpitations, Denies dyspnea, Denies dyspnea on exertion and Denies orthopnea Resp Denies cough, Denies excessive phlegm production, Denies dyspnea, Denies dyspnea on exertion, Denies snoring and Denies wheezing GI Denies abdominal pain, Denies hematochezia, Denies change in bowel habits, Denies change in stool character, Denies heartburn, Denies nausea and Denies vomiting Denies hematuria, Denies urinary frequency and Denies dysuria Musc Denies arthralgias, Denies muscle weakness, Denies numbness and Denies tingling Skin/Breast Denies nail changes and Denies rash Neuro Denies Abnormal speech present, Denies dizziness, Denies syncope, Denies frequent falls, Denies loss of vision, Denies memory loss, Denies numbness, Denies tingling and Denies weakness Psych Denies depression and Denies memory loss Endo Denies fatigue and Denies palpitations Aller/Immun Denies wheezing Physical Exam Vital Signs: Last Vital Signs Pulse 91 06/22/23 08:16 BP 140/60 H 06/22/23 08:16 BMI result Body Mass Index 54.1 Const Other: Morbidly obese General: cooperative, healthy appearing, comfortable and no acute distress Orientation/consciousness: patient oriented x3 Neck Neck: Yes normal visual inspection Resp Effort & Inspection: normal respiratory effort Auscultation: clear to auscultation bilaterally, no crackles, no rales, no rhonchi and no wheezes Cardio Jugular venous distension: no JVD Rate: regular rate Rhythm: regular rhythm Heart sounds: S1 normal heart sound present, S2 normal heart sound present, no gallops, no murmurs and no rubs Neuro General: patient oriented x3 Speech: No Abnormal speech present Extrem General: Yes normal to inspection, No no pedal edema and No calf tenderness Psych Appearance: grossly normal Mental Status: mental status grossly normal Speech and movement: Normal speech and movement present Assessment & Plan Assessment & Plan (1) Shortness of breath: Code(s): R06.02 - Shortness of breath Plan: ER evaluation on 06/02/2023 for shortness of breath. EKG showed sinus rhythm with no acute ST or T-wave abnormalities. CTA of the chest showed no PE, no acute findings, cardiomegaly, small to moderate hiatal hernia. Troponin normal. Today she is here for cardiology consultation reporting ongoing feeling of shortness of breath with activity. She denies PND, orthopnea or edema. She feels her shortness of breath has occurred over the last few months. On examination she has no clinical signs indicating heart failure. Her symptom may be multifactorial in the setting of sedentary lifestyle, morbid obesity, possible underlying pulmonary or cardiac condition. She does have a history of known obstructive sleep apnea which is untreated as she was not able to tolerate a mask. Will check an echocardiogram to assess for any structural heart disease. Will check BNP. She had reported that her home blood pressure monitor was stating irregular heart rhythm. No irregularities to her rhythm noted during ER evaluation. Pulse is regular on examination today. If she does have rhythm disturbance such as paroxysmal atrial fibrillation, that can add to shortness of breath. Will check 3 day Holter monitor. She may require a pharmacological nuclear stress test going forward. Will check the above tests 1st and decide. Cardiology follow-up in 6-8 weeks, sooner if needed (2) Irregular heartbeat: Code(s): I49.9 - Cardiac arrhythmia, unspecified Plan: As above (3) DENISE (obstructive sleep apnea): Comment: not using CPAP Code(s): G47.33 - Obstructive sleep apnea (adult) (pediatric) Plan: Not able to tolerate CPAP (4) Essential hypertension: Code(s): I10 - Essential (primary) hypertension Plan: Mildly elevated today. Will recheck next visit. Continue lisinopril (5) Morbid obesity due to excess calories: Code(s): E66.01 - Morbid (severe) obesity due to excess calories Coding Level of Care Code New Pt Level 4 (44888) Diagnoses Shortness of breath R06.02 Irregular heartbeat I49.9 DENISE (obstructive sleep apnea) G47.33 Essential hypertension I10 Morbid obesity due to excess calories E66.01 Time Spent (min) 26 Comment Chart review, documentation, interview, assess
[2023-06-22 08:16] VITALS: BP 140/60; PULSE 91; BMI 54.1
== END 2023-06-22 08:46 | disposition home or self-care (01) ==
PROVIDERS: PCP Internal Medicine; Referring Provider Internal Medicine; Visit Provider Nurse Practitioner Family
DX: R06.02 Shortness of breath (principal); I49.9 Cardiac arrhythmia, unspecified; G47.33 Obstructive sleep apnea (adult) (pediatric); I10 Essential (primary) hypertension; E66.01 Morbid (severe) obesity due to excess calories
CPT/HCPCS: 99204

== ENCOUNTER → 2023-06-22 07:44 | Outpatient (BNVA) | payer MEDICARE, MEDICAID, SELFPAY | PROVIDERS: PCP Internal Medicine; Referring Provider Internal Medicine; Visit Provider Nurse Practitioner Family | DX: I49.9 Cardiac arrhythmia, unspecified (principal); I10 Essential (primary) hypertension; R06.02 Shortness of breath; G47.33 Obstructive sleep apnea (adult) (pediatric); E66.01 Morbid (severe) obesity due to excess calories; Z68.43 Body mass index [BMI] 50.0-59.9, adult | CPT/HCPCS: 99202 ==

== ENCOUNTER → 2023-07-04 09:38 | Outpatient (REF) | payer MEDICARE, MEDICAID, SELFPAY ==
--- NOTE | 2023-07-04 10:07 | HM_ITS ---
conclusion: 1. Patient was monitored for total period of 3 days 2. Baseline was normal sinus rhythm with average heart of 71 beats per minute 3. No significant pauses noted 4. Occasional PACs noted with 8 ectopic atrial rhythm events, fastest at 124 beats per minute and longest of 10 beats 5. Patient reported to events of shortness of breath that correlated with sinus rhythm or sinus tachycardia. MTDD
--- NOTE | 2023-07-04 10:07 | CA_ITS ---
Transthoracic Echocardiogram Patient (Last, First, Middle): Marcelino Cross M Gender: Female Date of : 1955 Age: 68 Procedure Date: 07/04/2023 Procedure Type: Transthoracic Echocardiogram Location: OP Height: 167.64 cm Weight: 149.69 kg BSA: 2.47 m2 Heart Rate: 85 bpm BP: 130 / 80 mmHg Cotton Ginner: VINCENT Referring MD: Roseanne Newton EARTH SCIENCE TECHNICAL OFFICERHiraC Symptoms: R06.02 - Shortness of breath Study Quality: Technically Difficult/Contrast ECG Rhythm: Sinus Conclusions: - The left ventricular systolic function is hyperdynamic. The visually estimated ejection fraction is >70%. - No obvious valvular pathology seen on this study. Findings Procedure Information Contrast agent, definity, is being given per protocol without apparent complications. Left Ventricle Normal left ventricular cavity size. There is severely increased left ventricular wall thickness. The left ventricular systolic function is hyperdynamic. The visually estimated ejection fraction is >70%. Evidence suggests grade I (mild) diastolic dysfunction. Even with contrast, difficult to assess wall motion. Grossly, no overt abnormality. Right Ventricle Normal right ventricular cavity size and systolic function. Atria Both atria are normal in size. Aortic Valve The aortic valve was not well visualized. There is no aortic valve stenosis. There is no aortic valve regurgitation. Mitral Valve The mitral valve was not well visualized. There is no mitral valve regurgitation. There is no mitral valve stenosis. Pulmonic Valve The pulmonic valve is likely normal. Tricuspid Valve There is trace tricuspid valve regurgitation. Tricuspid regurgitation envelope is inadequate for calculation of right ventricular systolic pressure. Great Vessels The asc aorta is normal in size. Venous The inferior vena cava is normal in size and collapses greater than 50% with inspiration. Pericardium/Pleural Prominent epicardial adipose tissue noted. There is no evidence of pericardial effusion. Prior Study Comparison Changes noted compared to prior study dated: 05/13/2016. Progression of LVH; LV now hyperdynamic. Recommendations, Care & Conclusions No obvious valvular pathology seen on this study. Measurements 2D Linear Measurements IVSd: 1.60 0.6-0.9/0.6-1.0 cm LVIDd: 3.73 3.9-5.3/4.2-5.9 cm LVIDd Index: 1.51 2.4-3.2/2.2-3.1 cm/m2 LVIDs: 2.28 2.0-3.6 cm LVPWd: 1.61 0.7-1.1 cm LA Diam: 4.40 2.7-3.8/3.0-4.0 cm LAIDs Index: 1.78 1.5-2.3 cm/m2 LV Mass: 293.65 67-162/88-224 g LV Mass Index: 118.89 43-95/49-115 g/m2 LVOT Diam: 2.10 3.0+(-)1.3 cm Mitral Valve MV Pk E: 0.92 MV PK A: 1.17 MV Decel Time: 232.00 E/A: 0.80 E'Lateral: 5.77 E'Medial: 4.57 E/E' Med: 20.10 E/E' Lat: 15.90 PHT: 68.00 MVA PHT: 3.24 Decel Hudspeth: 3.95 Aortic Valve AoV Pk Wilbert: 1.88 AoV Mn Wilbert: 1.30 AoV VTI: 0.36 AoV Pk Grad: 14.00 Aov Mn Grad: 8.00 GEOVANNA Cont.VTI: 2.93 LVOT LVOT Pk Wilbert: 1.65 LVOT Mn Wilbert: 1.02 LVOT VTI: 0.31 LVOT Pk Grad: 11.00 LVOT Mn Grad: 5.00 LVOT Diam: 2.10 LVOT Area: 3.46 Diastolic Function MV Pk E: 0.92 MV Pk A: 1.17 E/A: 0.80 E'Medial: 4.57 E/E' Med: 20.10 E' Laterial: 5.77 E/E' Lat: 15.90 Tricuspid Valve RA Press: 8.00 Great Vessels Aorta Ao Asc: 3.90 2.1-3.4 cm Updated in Other Vendor System with Status of Final Willie Melissa MD electronically signed on 07/05/2023 11:40:17 AM with status of Final
== END ==
LOC: HO.CARD 09:38
PROVIDERS: PCP Internal Medicine; Visit Provider Nurse Practitioner Family
DX: I49.9 Cardiac arrhythmia, unspecified (principal); R06.02 Shortness of breath
CPT/HCPCS: 93242; 93306; Q9957

== ENCOUNTER → 2023-07-04 10:07 | Outpatient (BNV) | payer MEDICARE, MEDICAID, SELFPAY | PROVIDERS: PCP Internal Medicine; Visit Provider Internal Medicine | DX: I49.1 Atrial premature depolarization (principal) | CPT/HCPCS: 93244; 93306 ==

== ENCOUNTER 2023-07-13 08:32 | Outpatient (REF) | payer MEDICARE, MEDICAID, SELFPAY ==
[2023-07-13 12:22] LABS: Anion Gap 18 (12-20); Blood Urea Nitrogen 19 mg/dL (9-16); Calcium 9.7 mg/dL (8.4-10.2); Carbon Dioxide 21 mmol/L (22-29); Chloride 104 mmol/L (96-108); Estimated Glomerular Filt Rate 60; Glucose Random 113 mg/dL (60-115); Potassium 4.7 mmol/L (3.3-5.1); Sodium 138 mmol/L (135-145)
[2023-07-13 12:24] LABS: B Type Natriuretic Peptide 24 pg/mL (<100)
== END 2023-07-13 08:33 | disposition home or self-care (01) ==
LOC: HO.HMGCLDS 08:32
PROVIDERS: PCP Internal Medicine; Visit Provider Nurse Practitioner Family
DX: R06.02 Shortness of breath (principal); I10 Essential (primary) hypertension
CPT/HCPCS: 36415; 80048; 83880

== ENCOUNTER 2023-07-31 11:12 | Outpatient (AMB) | payer MEDICARE, MEDICAID, SELFPAY ==
--- NOTE | 2023-07-31 11:41 | A.OFFPC_ITS ---
Vital Signs 07/31/23 11:47 Height 5 ft 6 in Weight 333 lb BMI 53.7 BP 132/72 Pulse 95 Pulse Source Pulse Oximeter Pulse Oximetry (%) 97 Oxygen Delivery Method Room Air Intake Visit Reasons: 6 month Follow up HTN Intake Note: Pt is here today for her 6 mo. f/u HTN Allergies codeine [CODEINE] Allergy (Severe, Verified 07/31/23 12:11) NAUSEA & SEVERE VOMITING, stomach upset Medication List - Last Reconciled 07/31/23 by Yasmin Wagner MD cholecalciferol (vitamin D3) 25 mcg PO DAILY citalopram 20 mg PO DAILY dicyclomine 10 mg PO QID PRN glucosamine HCl PO lisinopril 40 mg PO DAILY Tobacco use date assessed: 07/31/23 Fall risk assessment: No Falls in past year Last assessed Fall Risk: 07/31/23 Dental Screening Dental Screen Date: 07/31/23 Did you have a dental visit in the last 12 months?: Yes Did you have a dental problem in the last 6 months where you did not have access to dental care?: No Was dental information given to patient?: Patient has dentist HPI 6 month Follow up HTN HPI Details 68-year-old lady here today for follow-u p on her hypertension. She is currently taking lisinopril at 40 mg daily. Blood pressure has been stable and controlled on present dose. She has been feeling well, with no complaints at present time. She goes to the [facility] to swim at least 3 to 4 times a week and joints also water aerobic exercises. It is noted that a CTA of chest done at the ED May 2023 showed dental finding of a solid pulmonary nodules, largest in the left apex measuring 0.8 cm.. Patient denies any chest pain, no shortness of breath, no hemoptysis or wheezing reported, no abnormal weight loss. No history of smoking or exposure to secondhand smoke [facility] Medical History (Updated 07/31/23 @ 12:27 by Yasmin Wagner MD) Pulmonary nodule, right History of COVID-19 Mixed anxiety and depressive disorder Morbid obesity due to excess calories Cataracts, bilateral Osteopenia of left hip Vitamin D deficiency Impaired fasting glucose DENISE (obstructive sleep apnea) Essential hypertension Surgical History Hx of gastric bypass History of total hip replacement Family History Father No problems noted. Mother No problems noted. Maternal Aunt Mental health disorder Social History Housing: House Alcohol intake: never Patient Tobacco Use Status: Never used Tobacco e-Cigarette/Vaping Use: Never Used service: No Current occupational status: retired Cognitive needs: No Hearing needs: No Vision needs: No Questionnaire Thrive Questionnaire Date Thrive assessed: 01/26/23 AUDIT C Alcohol Use Questionnaire (AUDIT-C) 1. How often do you have a drink containing alcohol?: Never Total Score: 0 IRAIS-7 AMB Questionnaire IRAIS-7 Date IRAIS - 7 assessed: 01/26/23 Source: Developed by Drs. Magdy Carmen, Keri Connor, Jose Boyd and colleagues, with an educational kelsey from [employer] Review of Systems Const Denies chills, Denies daytime sleepiness, Denies fatigue, Denies fever(s), Denies frequent falls and Denies weakness ENT Denies dizziness and Denies hearing loss Card Denies chest pain, Denies chest pain with activity, Denies syncope, Denies rapid heart rate, Denies claudication, Denies leg edema, Denies lightheadedness, Denies palpitations, Denies dyspnea, Denies dyspnea on exertion and Denies orthopnea Resp Denies cough, Denies dyspnea, Denies dyspnea on exertion and Denies wheezing GI Denies abdominal pain, Denies change in bowel habits, Denies change in stool character, Denies heartburn and Denies nausea Denies hematuria, Denies urinary frequency and Denies dysuria Musc Reports arthralgias, Denies muscle weakness, Denies numbness, Reports stiffness and Denies tingling Skin/Breast Denies rash Neuro Denies Abnormal speech present, Denies dizziness, Denies syncope, Denies frequent falls, Denies memory loss, Denies numbness, Denies tingling and Denies weakness Psych Denies depression and Denies memory loss Endo Denies fatigue and Denies palpitations Aller/Immun Denies wheezing Physical exam (Primary Care) Vital Signs: Last Vital Signs Pulse 95 07/31/23 11:47 BP 132/72 07/31/23 11:47 Pulse Ox 97 07/31/23 11:47 Oxygen Delivery Method Room Air 07/31/23 11:47 BMI result Body Mass Index 53.7 Tobacco/Smoking Status: Tobacco use Status Tobacco use date assessed 07/31/23 07/31/23 11:50 Patient Tobacco Use Status Never used Tobacco 07/31/23 11:42 e-Cigarette/Vaping Use Never Used 07/31/23 11:42 Thrive Assessment: Date of Thrive Assessment Date Thrive assessed 01/26/23 07/31/23 11:42 Const Other: Morbidly obese female, alert oriented x3, no acute distress noted ambulatory without assistance General: cooperative, comfortable, no acute distress, alert, awake and Physically active Nutritional Appearance: obese morbidly obese Orientation/consciousness: patient oriented x3 Limitations: no limitations HENMT Head: Yes normocephalic Ears: external ears normal General nose exam: Normal external nose present and No nasal discharge present Face and sinus: Yes face symmetric Mouth: Normal oral and palatal mucosa present, oropharynx normal and moist mucous membranes Eyes General: appearance normal, both eyes and all related structures Neck Neck: Yes full ROM, Yes no lymphadenopathy and Yes supple Thyroid: Thyroid normal Resp Effort & Inspection: normal respiratory effort and able to speak in complete sentences Auscultation: clear to auscultation bilaterally Cardio Other: S1-S2 present regular rate and rhythm Rate: regular rate Rhythm: regular rhythm Heart sounds: S1 normal heart sound present and S2 normal heart sound present General: Yes no CVA tenderness Back/Spine/Pelvis Back: no CVA tenderness and No back tenderness Neuro General: patient oriented x3, gait normal, tone normal, moves all extremities, no focal motor deficits and CN's II-XI intact bilaterally Cognition (Neuro): normal cognition Speech: No Abnormal speech present Extrem Other: Heberden's nodes on left ring finger General: Yes full ROM, Yes no joint enlargement, Yes no clubbing, cyanosis or edema and Yes no calf tenderness Psych Appearance: grossly normal and well kempt Mental Status: mental status grossly normal Speech and movement: Normal speech and movement present Affect: normal affect Attitude: cooperative Thought process: Normal thought process present Thought content: Normal thought content present Results Reviewed Results Reviewed: ENTERED: 06/02/23-[address]: Yasmin Wagner MD ORDERED: CBC Auto Diff Test Result Flag Reference Site WBC 10.3 4.8-10.8 X10*3/uL RBC 4.46 4.20-5.50 X10*6/uL HGB 12.4 12.0-16.0 g/dl HCT 40.4 37.0-47.0 % MCV 90.6 80.0-98.0 fL MCH 27.8 27.0-33.0 pg MCHC 30.7 L 31.0-35.0 g/dl RDW 13.7 11.0-16.0 % PLT 279 160-400 X10*3/uL MPV 10.8 9.4-12.3 fL Neut Pct Auto 83.4 H 45-73 % ImGran Pct Auto 0.3 0.0-0.4 % Lymp Pct Auto 11.1 L 20-40 % [place] Pct Auto 4.8 2-11 % Eos Pct Auto 0.0 0-4 % Baso Pct Auto 0.4 0-2 % NRBC Pct Auto 0.0 0.0-0.2 /100WBC ANC Neut Abs # 8.6 H 2.0-8.3 x10*3/uL ImGran Abs Auto 0.03 0.00-0.03 X10*3/uL Lymph Abs Auto 1.1 L 1.2-4.9 X10*3/uL [place] Abs Auto 0.5 0.1-1.2 X10*3/uL Eos Abs Auto 0.0 0.0-0.4 X10*3/uL Baso Abs Auto 0.0 0.0-0.2 X10*3/uL NRBC A ENTERED: 07/13/23-0840 [facility] DR: Yasmin Wagner MD ORDERED: BMP Test Result Flag Reference Site Sodium 138 135-145 mmol/L Potassium 4.7 3.3-5.1 mmol/L CL 104 96-108 mmol/L CO2 21 L 22-29 mmol/L Gap 18 12-20 BUN 19 H 9-16 mg/dL Creat 0.93 0.5-1.4 mg/dL EGFR 60 NOTE: For -[place] individuals, multiply the result by 1.210. Chronic Kidney Disease: Estimated GFR < 60 mL/min/1.73m2 Severe Kidney Disease: Estimated GFR < 15 mL/min/1.73m2 Glucose, Random 113 60-115 mg/dL CA 9.7 8.4-10.2 mg/dL Assessment and Plan Assessment & Plan (1) Essential hypertension: Code(s): I10 - Essential (primary) hypertension Plan: Blood pressure at goal of less than 130/80. Continue with lisinopril 40 mg daily. Reinforced importance of following a low sodium diet, getting regular exercise, and lowering stress levels. Continue doing her regular swimming at the [facility] 3 times a week and continue doing water aerobic exercises at the [facility] as well (2) Pulmonary nodule, right: Comment: Solid pulmonary nodules, largest in the left apex measuring 0.8 cm. Code(s): R91.1 - Solitary pulmonary nodule Plan: will order repeat CT of chest when I see her for her follow-up in January of next year Coding Level of Care Code Est Pt Level 3 (13092) Diagnoses Essential hypertension I10 Pulmonary nodule, right R91.1
[2023-07-31 11:47] VITALS: BP 132/72; PULSE 95; O2SAT 97; BMI 53.7
== END 2023-07-31 12:48 | disposition home or self-care (01) ==
PROVIDERS: PCP Internal Medicine; Visit Provider Internal Medicine
DX: I10 Essential (primary) hypertension (principal); R91.1 Solitary pulmonary nodule
CPT/HCPCS: 99213

== ENCOUNTER 2023-08-29 13:38 | Outpatient (AMB) | payer MEDICARE, MEDICAID, SELFPAY ==
[2023-08-29 13:59] VITALS: BP 136/72; PULSE 95; O2SAT 95; BMI 53.8
--- NOTE | 2023-08-29 13:59 | MHC.OFFVIS ---
Intake Vital Signs 08/29/23 13:59 Height 5 ft 6 in Weight 333 lb 5.423 oz BMI 53.8 BP 136/72 Blood Pressure Location Lt brachial Position Sitting Pulse 95 Pulse Source Pulse Oximeter Pulse Oximetry (%) 95 Intake Visit Reasons: 2 mth f/up echo/ holter Intake Note: 2 moth f/u after testing [employer] Required: No Allergies codeine [CODEINE] Allergy (Severe, Verified 08/29/23 14:01) NAUSEA & SEVERE VOMITING, stomach upset Medication List - Last Reconciled 08/29/23 by Roseanne Newton, [employer] cholecalciferol (vitamin D3) 25 mcg PO DAILY citalopram 20 mg PO DAILY dicyclomine 10 mg PO QID PRN glucosamine HCl PO lisinopril 40 mg PO DAILY HPI 2 mth f/up echo/ holter HPI Details Marcelino is a 68-year-old female with past medical history of morbid obesity, hypertension, impaired fasting glucose, obstructive sleep apnea, untreated who recently presented to the emergency room with report of shortness of breath and abnormal heart rhythm on her home blood pressure meter. ED evaluation showed no significant findings. She was referred to Cardiology for follow-up. On last visit an echocardiogram and Holter monitor were ordered. She now presents for follow-up. Today she reports that her breathing improved following a recent increase in lisinopril dose. Now that her blood pressure is lower she says her breathing is back to normal. She denies any chest discomfort, PND, orthopnea or edema. She has no lightheadedness, presyncope, syncope, falls. She does swimming exercises but otherwise is mostly sedentary. She ambulates with a wheeling walker. She is not able to tolerate a CPAP mask. She has been taking all her meds as directed. [facility] Medical History Pulmonary nodule, right History of COVID-19 Mixed anxiety and depressive disorder Morbid obesity due to excess calories Cataracts, bilateral Osteopenia of left hip Vitamin D deficiency Impaired fasting glucose DENISE (obstructive sleep apnea) Essential hypertension Surgical History Hx of gastric bypass History of total hip replacement Family History Father No problems noted. Mother No problems noted. Maternal Aunt Mental health disorder Social History Housing: House Alcohol intake: never Patient Tobacco Use Status: Never used Tobacco e-Cigarette/Vaping Use: Never Used service: No Current occupational status: retired Cognitive needs: No Hearing needs: No Vision needs: No Review of Systems Const All systems reviewed & are unremarkable except as noted in HPI and below ENT Denies dizziness Card Details: sob improved Denies chest pain, Denies chest pain at rest, Denies chest pain with activity, Denies rapid heart rate, Denies pedal edema, Denies edema, Denies leg edema, Denies lightheadedness, Denies palpitations, Denies dyspnea, Denies dyspnea on exertion and Denies orthopnea Resp Denies cough, Denies dyspnea and Denies dyspnea on exertion GI Denies hematochezia and Denies change in stool character Musc Details: uses wheeled walker Reports abnormal gait, Denies limited range of motion, Denies muscle cramps, Denies muscle weakness, Denies numbness, Denies radiating pain into limb, Denies stiffness and Denies tingling Neuro Reports abnormal gait, Denies dizziness, Denies numbness and Denies tingling Endo Denies palpitations Physical Exam Vital Signs: Last Vital Signs Pulse 95 08/29/23 13:59 BP 136/72 08/29/23 13:59 Pulse Ox 95 08/29/23 13:59 BMI result Body Mass Index 53.8 Const General: cooperative, comfortable and no acute distress Orientation/consciousness: patient oriented x3 Neck Neck: Yes normal visual inspection Resp Effort & Inspection: normal respiratory effort Auscultation: clear to auscultation bilaterally, no crackles, no rales, no rhonchi and no wheezes Cardio Rate: regular rate Rhythm: regular rhythm Heart sounds: S1 normal heart sound present, S2 normal heart sound present, no murmurs and no rubs Skin General skin exam: no rashes or lesions noted Neuro General: patient oriented x3 Extrem General: Yes normal to inspection, No no pedal edema and No calf tenderness Psych Appearance: grossly normal Mental Status: mental status grossly normal Speech and movement: Normal speech and movement present Assessment & Plan Assessment & Plan (1) Shortness of breath: Code(s): R06.02 - Shortness of breath Plan: ER evaluation on 06/02/2023 for shortness of breath. EKG showed sinus rhythm with no acute ST or T-wave abnormalities. CTA of the chest showed no PE, no acute findings, cardiomegaly, small to moderate hiatal hernia. Troponin normal. On last visit she describes getting increasing shortness of breath over the last few months. Her blood pressure readings have been mildly elevated and she states that her lisinopril dose was then increased. An echocardiogram was done on 07/04/2023 showing EF greater than 70%, severe increase in the LV wall thickness, normal valves, grade 1 diastolic dysfunction. Last prior echo done 05/13/2016 showed mild LVH. Today she tells me she has been feeling much better now that her blood pressure is better controlled. She no longer has the shortness of breath she was experiencing around the time of last visit. She does not appear fluid overloaded on examination though her obesity makes this more challenging. With her severe LVH it is very important keep her blood pressure well controlled. Blood pressure today 136/72. She has reports of heart palpitations as well. Will add a low-dose of metoprolol, metoprolol XL 25 mg daily to help with both palpitation and blood pressure. Low-salt diet reviewed. Benefits of weight loss discussed. Continue activity as tolerated, swimming. Cardiology follow-up in 6 months, sooner if needed (2) Irregular heartbeat: Code(s): I49.9 - Cardiac arrhythmia, unspecified Plan: Holter monitor done on 07/04/2023 for 3 days shows sinus rhythm with average heart rate 71, occasional PACs, ectopic atrial events, longest 10 beats, symptoms correlate with sinus rhythm or sinus tach. Adding low-dose metoprolol to help with blood pressure, and palpitation. (3) DENISE (obstructive sleep apnea): Comment: not using CPAP Code(s): G47.33 - Obstructive sleep apnea (adult) (pediatric) Plan: Not able to tolerate CPAP (4) Essential hypertension: Code(s): I10 - Essential (primary) hypertension Plan: As above (5) Morbid obesity due to excess calories: Code(s): E66.01 - Morbid (severe) obesity due to excess calories Medications: New metoprolol succinate ER 25 mg PO DAILY 30 tabs 5RF Coding Level of Care Code Est Pt Level 3 (78274) Diagnoses Shortness of breath R06.02 Irregular heartbeat I49.9 DENISE (obstructive sleep apnea) G47.33 Essential hypertension I10 Morbid obesity due to excess calories E66.01 Time Spent (min) 24
== END 2023-08-29 14:32 | disposition home or self-care (01) ==
PROVIDERS: PCP Internal Medicine; Visit Provider Nurse Practitioner Family
DX: R06.02 Shortness of breath (principal); I49.9 Cardiac arrhythmia, unspecified; G47.33 Obstructive sleep apnea (adult) (pediatric); I10 Essential (primary) hypertension; E66.01 Morbid (severe) obesity due to excess calories
CPT/HCPCS: 99213

== ENCOUNTER → 2023-08-29 13:38 | Outpatient (BNVA) | payer MEDICARE, MEDICAID, SELFPAY | PROVIDERS: PCP Internal Medicine; Visit Provider Nurse Practitioner Family | DX: R06.02 Shortness of breath (principal); I49.9 Cardiac arrhythmia, unspecified; I10 Essential (primary) hypertension; G47.33 Obstructive sleep apnea (adult) (pediatric); E66.01 Morbid (severe) obesity due to excess calories; Z68.43 Body mass index [BMI] 50.0-59.9, adult | CPT/HCPCS: 99212 ==

== ENCOUNTER 2024-01-22 11:01 | Outpatient (AMB) | payer MEDICARE, MEDICAID, SELFPAY ==
--- NOTE | 2024-01-22 11:03 | A.OFFVIS_ITS ---
Intake Vital Signs 01/22/24 11:04 Height 5 ft 6 in Weight 333 lb BMI 53.7 Intake Visit Reasons: Ov- B/L OA of the knees last inj 06/19/23 Intake Note: Marcelino is a 68 year old female who presents today for a follow up of bilateral knee OA, Last Injection done 06/19/2023. Patient reports that these injections were very helpful and she would like to repeat injections. Allergies codeine [CODEINE] Allergy (Severe, Verified 08/29/23 14:01) NAUSEA & SEVERE VOMITING, stomach upset HPI Ov- B/L OA of the knees last inj 06/19/23 HPI Details Marcelino is a 68 year old female who presents today for a follow up of bilateral knee OA, Last Injection done 06/19/2023. Found injections very helpful and she would like to repeat. Uses a walker to ambulate. Denies injury. Left knee is more painful. Location bilateral knees Treatment Bilateral Knee Steroid injections [facility] Medical History Pulmonary nodule, right History of COVID-19 Mixed anxiety and depressive disorder Morbid obesity due to excess calories Cataracts, bilateral Osteopenia of left hip Vitamin D deficiency Impaired fasting glucose DENISE (obstructive sleep apnea) Essential hypertension Surgical History Hx of gastric bypass History of total hip replacement Family History Father No problems noted. Mother No problems noted. Maternal Aunt Mental health disorder Social History Housing: House Alcohol intake: never Patient Tobacco Use Status: Never used Tobacco e-Cigarette/Vaping Use: Never Used service: No Current occupational status: retired Cognitive needs: No Hearing needs: No Vision needs: No Physical Exam Vital Signs: BMI result Body Mass Index 53.7 Const Nutritional Appearance: obese morbidly obese Extrem Other: ttp medial compartment bilateral knees Office Procedures Joint Injection/Drain Joint Injection/Drain Details: Injected 1 mL of Decadron and 3 mL 1% lidocaine and 3 mL of 0.25% Marcaine. Site was prepped using aseptic technique. Patient tolerated the procedure well. Primary Site: right knee Secondary Site: left knee Approach Used: anterolateral Coding - Large joint - Glenohumeral/Tronchanteric Bursa/Intraarticular Procedure code (CPT) selection complete Assessment & Plan Assessment & Plan (1) Osteoarthritis of knees, bilateral: Code(s): M17.0 - Bilateral primary osteoarthritis of knee Qualifiers: Osteoarthritis type: primary Qualified Code(s): M17.0 - Bilateral primary osteoarthritis of knee Plan: Bilateral knee OA. Not a surgical candidate. Conditioning, weight loss and I injected bilateral knees today. May follow up as needed. Coding Level of Care Code Est Pt Level 3 (67849) Diagnoses Primary osteoarthritis of both knees M17.0 Osteoarthritis type: primary CPT Codes Coding - Large joint: 24831 - Large joint ([id number]) Coding - Joint 7: - Glenohumeral/Tronchanteric Bursa/Intraarticular ([id number])
[2024-01-22 11:04] VITALS: BMI 53.7
== END 2024-01-22 14:44 ==
PROVIDERS: PCP Internal Medicine; Visit Provider Orthopaedic Surgery
DX: M17.0 Bilateral primary osteoarthritis of knee (principal)
CPT/HCPCS: 20610; 99213

== ENCOUNTER → 2024-01-22 11:01 | Outpatient (BNVA) | payer MEDICARE, MEDICAID, SELFPAY | PROVIDERS: PCP Internal Medicine; Visit Provider Orthopaedic Surgery | DX: M17.0 Bilateral primary osteoarthritis of knee (principal) | CPT/HCPCS: 20610; 99212; J0665; J1100 ==

== ENCOUNTER 2024-02-20 11:37 | Outpatient (REF) | payer MEDICARE, MEDICAID, SELFPAY | END 2024-02-20 11:38 | disposition home or self-care (01) | LOC: HO.MAMMO 11:37 | PROVIDERS: PCP Internal Medicine; Visit Provider Internal Medicine | DX: Z12.31 Encounter for screening mammogram for malignant neoplasm of breast (principal) | CPT/HCPCS: 77063; 77067 ==

== ENCOUNTER → 2024-02-20 11:45 | Outpatient (BNV) | payer MEDICARE, MEDICAID, SELFPAY | PROVIDERS: PCP Internal Medicine; Visit Provider Radiology Diagnostic Radiology | DX: Z12.31 Encounter for screening mammogram for malignant neoplasm of breast (principal) | CPT/HCPCS: 77063; 77067 ==

== ENCOUNTER 2024-03-20 08:43 | Outpatient (AMB) | payer MEDICARE, MEDICAID, SELFPAY ==
[2024-03-20 09:03] VITALS: BP 136/78; PULSE 96; O2SAT 97; BMI 55.0
--- NOTE | 2024-03-20 09:03 | A.OFFPC_ITS ---
<Statement entered by Yasmin Wagner MD - 03/19/25 15:03> This note has been administratively?closed. 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 Allergies codeine [CODEINE] Allergy (Severe, Verified 03/20/24 09:38) NAUSEA & SEVERE VOMITING, stomach upset Medication List - Last Reconciled 03/20/24 by Yasmin Wagner MD cholecalciferol (vitamin D3) 25 mcg PO DAILY citalopram 20 mg PO DAILY dicyclomine 10 mg PO QID PRN glucosamine HCl PO lisinopril 40 mg PO DAILY metoprolol succinate ER 25 mg PO DAILY Tobacco use date assessed: 03/20/24 Fall risk assessment: No Falls in past year Last assessed Fall Risk: 03/20/24 Dental Screening Dental Screen Date: 03/20/24 Did you have a dental visit in the last 12 months?: Yes Did you have a dental problem in the last 6 months where you did not have access to dental care?: No Was dental information given to patient?: Patient has dentist HPI Moe CAMPOS HPI Details Swims at the [facility] twice a week , and uses the exercise equipment at the [facility] daily [facility] Medical History Pruritic intertrigo Pulmonary nodule, left History of COVID-19 Mixed anxiety and depressive disorder Morbid obesity due to excess calories Cataracts, bilateral Osteopenia of left hip Vitamin D deficiency Impaired fasting glucose DENISE (obstructive sleep apnea) Essential hypertension Surgical History Hx of gastric bypass History of total hip replacement Family History Father No problems noted. Mother No problems noted. Maternal Aunt Mental health disorder Social History Housing: House Alcohol intake: never Patient Tobacco Use Status: Never used Tobacco e-Cigarette/Vaping Use: Never Used service: No Current occupational status: retired Cognitive needs: No Hearing needs: No Vision needs: No Questionnaire PHQ-9 Over the last 2 weeks, how often have you been bothered by any of the following problems? 1. Little interest or pleasure in doing things: not at all 2. Feeling down, depressed, or hopeless: not at all 3. Trouble falling or staying asleep, or sleeping too much: several days 4. Feeling tired or having little energy: several days 5. Poor appetite or overeating: not at all 6. Feeling bad about yourself - or that you are a failure or have let yourself or your family down: not at all 7. Trouble concentrating on things, such as reading the newspaper or watching television: not at all 8. Moving or speaking so slowly that other people could have noticed. Or the opposite - being so fidgety or restless that you have been moving around a lot more than usual: not at all 9. Thoughts that you would be better off or of hurting yourself in some way: not at all Total score: 2 Depression Screening Interpretation: Negative Depression Screening Done: Yes 66064 - PHQ-9 Billing: Yes Source: Developed by Drs. Magdy Carmen, Keri Connor, Jose Boyd and colleagues, with an educational kelsey from [employer]. Thrive Questionnaire Date Thrive assessed: 03/20/24 I am a: Patient What is your living situation today?: I have a steady place to live Within the past 12 months, did the food you bought not last and you didn't have the money to get more?: Never true Within the past 12 months, did you worry whether your food would run out before you got money to buy more?: Never true Do you have trouble paying for medicines?: No Do you have trouble getting transportation to medical appointments?: No Do you have trouble paying your heating and electricity bill?: No Do you have trouble taking care of your child, family member or friend?: No Do you have trouble with day-to-day activities such as bathing, preparing meals, shopping, managing finances, etc.?: No Are you currently unemployed and looking for a job?: No Are you interested in more education?: No Please select the resources that you would like help with: None Currently or been in a relationship where the following occur: no concerns reported THRIVE Score: 0 AUDIT C Alcohol Use Questionnaire (AUDIT-C) 1. How often do you have a drink containing alcohol?: Never Total Score: 0 Score Reviewed/Action Taken: Yes IRAIS-7 AMB Questionnaire IRAIS-7 Date IRAIS - 7 assessed: 03/20/24 Feeling nervous, anxious, or on edge: 2 = More than half the days Not being able to stop or control worryin = Several days Worrying too much about different things: 0 = Not at all Trouble relaxin = More than half the days Being so restless that it is hard to sit still: 0 = Not at all Becoming easily annoyed or irritable: 0 = Not at all Feeling afraid as if something awful might happen: 0 = Not at all Total IRAIS-7 score (0-4 normal; 5-9 mild; 10-14 moderate; 15-21 severe): 5 Source: Developed by Drs. Magdy Carmen, Keri Connor, Jose Boyd and colleagues, with an educational kelsey from [employer]. IRAIS-7 Assessment Billing IRAIS-7 Assessment Tool: IRAIS-7 Assessment 36145 Review of Systems Const Reports no additional complaints, Denies fatigue, Denies frequent falls and Denies weakness Eyes Details: Currently sees Dr. Fuentes, has some haziness in her left eye after cataract surgery, is going to be scheduled for laser ENT Details: Get 6 months dental prophylaxis Reports no additional complaints and Denies dizziness Card Denies chest pain, Denies chest pain with activity, Denies syncope, Denies rapid heart rate, Denies claudication, Denies leg edema, Denies lightheadedness, Denies palpitations, Reports dyspnea on exertion and Denies orthopnea Resp Denies cough, Reports dyspnea on exertion and Denies wheezing GI Denies abdominal pain, Denies change in bowel habits, Denies change in stool character, Denies heartburn and Denies nausea Denies hematuria, Denies urinary frequency and Denies dysuria Musc Details: She gets steroid injections and knee and for six-month Reports arthralgias, Denies muscle weakness, Denies numbness, Reports stiffness and Denies tingling Skin/Breast Denies rash Neuro Denies dizziness, Denies syncope, Denies frequent falls, Denies numbness, Denies tingling and Denies weakness Psych Reports no additional complaints Endo Denies fatigue and Denies palpitations Aly/Lymph Reports no additional complaints Aller/Immun Denies wheezing Physical exam (Primary Care) Vital Signs: Last Vital Signs Pulse 96 03/20/24 09:03 BP 136/78 03/20/24 09:03 Pulse Ox 97 03/20/24 09:03 Oxygen Delivery Method Room Air 03/20/24 09:03 BMI result Body Mass Index 55.0 Tobacco/Smoking Status: Tobacco use Status Tobacco use date assessed 03/20/24 03/20/24 09:05 Patient Tobacco Use Status Never used Tobacco 03/20/24 09:05 e-Cigarette/Vaping Use Never Used 03/20/24 09:05 PHQ-9: PHQ-9 Score PHQ-9: Total score 2 03/20/24 09:28 Depression Screening Interpretation: Negative Thrive Assessment: Date of Thrive Assessment Date Thrive assessed 03/20/24 03/20/24 09:05 Currently or been in a relationship where the following occur: no concerns reported Assessment and Plan Assessment & Plan (1) Osteopenia of left hip: Code(s): M85.852 - Other specified disorders of bone density and structure, left thigh (2) Pulmonary nodule, left: Comment: Solid pulmonary nodules, largest in the left apex measuring 0.[address] angio chest done 06/02/2023 Code(s): R91.1 - Solitary pulmonary nodule (3) Pruritic intertrigo: Code(s): L30.4 - Erythema intertrigo (4) Osteopenia of left hip: Code(s): M85.852 - Other specified disorders of bone density and structure, left thigh (5) Essential hypertension: Code(s): I10 - Essential (primary) hypertension (6) Morbid obesity due to excess calories: Code(s): E66.01 - Morbid (severe) obesity due to excess calories (7) Mixed anxiety and depressive disorder: Code(s): F41.8 - Other specified anxiety disorders Orders: Orders CT chest wo con - High Res Today R91.1 - Solitary pulmonary nodule Vitamin D 25-OH Total Today E66.01 - Morbid (severe) obesity due to excess calories, F41.8 - Other specified anxiety disorders, I10 - Essential (primary) hypertension, M85.852 - Other specified disorders of bone density and structure, left thigh Aspartate Amino Transferase Today E66.01 - Morbid (severe) obesity due to excess calories, F41.8 - Other specified anxiety disorders, I10 - Essential (primary) hypertension, M85.852 - Other specified disorders of bone density and structure, left thigh XR DEXA axial skeleton Today M85.852 - Other specified disorders of bone density and structure, left thigh Lipid Panel Today E66.01 - Morbid (severe) obesity due to excess calories, F41.8 - Other specified anxiety disorders, I10 - Essential (primary) hypertension, M85.852 - Other specified disorders of bone density and structure, left thigh Basic Metabolic Panel Fasting Today E66.01 - Morbid (severe) obesity due to excess calories, F41.8 - Other specified anxiety disorders, I10 - Essential (primary) hypertension, M85.852 - Other specified disorders of bone density and structure, left thigh Alanine Aminotransferase Today E66.01 - Morbid (severe) obesity due to excess calories, F41.8 - Other specified anxiety disorders, I10 - Essential (primary) hypertension, M85.852 - Other specified disorders of bone density and structure, left thigh Medications: New nystatin 1 appl topical BID PRN 30 grams 1RF rash L30.4 - Erythema intertrigo Coding Level of Care Code Est Pt Prev Care >65y(23816) Diagnoses Osteopenia of left hip M85.852 Pulmonary nodule, left R91.1 Pruritic intertrigo L30.4 Essential hypertension I10 Morbid obesity due to excess calories E66.01 Mixed anxiety and depressive disorder F41.8 Additional Codes IRAIS-7 Assessment Billing - IRAIS-7 Assessment Tool: IRAIS-7 Assessment 36493 ([id number])
== END 2024-03-20 11:59 | disposition home or self-care (01) ==
PROVIDERS: Visit Provider Internal Medicine
DX: M85.852 Other specified disorders of bone density and structure, left thigh (principal); R91.1 Solitary pulmonary nodule; L30.4 Erythema intertrigo; I10 Essential (primary) hypertension; E66.01 Morbid (severe) obesity due to excess calories; F41.8 Other specified anxiety disorders; R73.01 Impaired fasting glucose
CPT/HCPCS: 99499

== ENCOUNTER 2024-03-26 08:15 | Outpatient (REF) | payer MEDICARE, MEDICAID, SELFPAY ==
[2024-03-26 11:20] LABS: Estimated Average Glucose 117 mg/dL; Hemoglobin A1c % 5.7 % (<6.0)
[2024-03-26 11:26] LABS: Alanine Aminotransferase 11 U/L (0-31); Anion Gap 17 (12-20); Aspartate Amino Transferase 14 U/L (5-31); Blood Urea Nitrogen 19 mg/dL (9-16); Calcium 9.8 mg/dL (8.4-10.2); Carbon Dioxide 23 mmol/L (22-29); Chloride 106 mmol/L (96-108); Cholesterol 196 mg/dL (<200); Estimated Glomerular Filt Rate > 60; Glucose Fasting 107 mg/dL (60-99); HDL Cholesterol 60 mg/dL (>40); LDL Cholesterol Calculated 120 mg/dL (<100); Potassium 4.7 mmol/L (3.3-5.1); Sodium 141 mmol/L (135-145); Triglycerides 83 mg/dL (<150)
[2024-03-26 11:44] LABS: Vitamin D 25-OH Total 20.3 ng/mL (>30)
== END 2024-03-26 08:16 | disposition home or self-care (01) ==
LOC: HO.HMGCLDS 08:15
PROVIDERS: PCP Internal Medicine; Visit Provider Internal Medicine
DX: M85.852 Other specified disorders of bone density and structure, left thigh (principal); I10 Essential (primary) hypertension; E66.01 Morbid (severe) obesity due to excess calories; F41.8 Other specified anxiety disorders; R73.01 Impaired fasting glucose
CPT/HCPCS: 36415; 80048; 80061; 82306; 83036; 84450; 84460

== ENCOUNTER 2024-04-29 07:22 | Outpatient (REF) | payer MEDICARE, MEDICAID, SELFPAY ==
--- NOTE | ~2024-04-29 | CT_ITS ---
EXAMINATION: CT CHEST WITHOUT CONTRAST. CLINICAL INFORMATION: Solitary pulmonary nodule COMPARISON: None TECHNIQUE: Multidetector volumetric CT imaging of the chest was obtained after without intravenous contrast. Axial MIP volume rendering provided. Sagittal and coronal reformatted images were obtained. This CT examination was performed using dose optimization techniques as appropriate, variously including the following: *Automated exposure control *Adjustment of mA and/or kV according to patient size (this includes techniques or standardized protocols for targeted exams where dose is matched to indication/reason for exam; i.e. extremities or head) *Use of iterative reconstruction technique DLP: 371 mGy-cm Please note, due to [employer] technical systems and internal issues, this examination was not available for dictation until 05/30/2024. Study is somewhat limited due to patient morbid obesity and beam starvation artifact. 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 LUNGS: -There is mild to moderate motion degradation particularly in the lower lobe distribution. -Average diameter 6 mm nodule left apex medially, slightly smaller than previously, suggesting benignity (series 6, image 34). -3 mm calcified granuloma in the inferior right upper lobe (series 6, image 89), benign. There are a few additional tiny scattered calcified granulomata present. -Previously seen small airspace opacity in the posterior right lower lobe has resolved. -No new nodules or new consolidations. -Respiratory motion artifact limits evaluation of small airways in the lower lobes, although there appears to be mild traction bronchiectasis in the lateral basal left lower lobe due to regional scarring. -There is no evidence of interstitial lung disease or significant air trapping. There is no evidence of emphysema. PLEURA: There is no pleural effusion. No pleural mass or thickening. MEDIASTINUM: -There is no abnormal lymphadenopathy. -The thyroid is normal in appearance without significant nodule. -Aorta is normal in caliber and course with normal branching pattern. -Pulmonary artery is normal in size. -There is mild cardiac enlargement. There is no pericardial effusion. -Trachea and major bronchi are patent. -There is a sizable hiatus hernia which contains the fundus of the stomach, which has undergone prior sleeve procedure. AXILLA/CHEST WALL: No lymphadenopathy. UPPER ABDOMEN: Unremarkable. OSSEOUS STRUCTURES: No suspicious lytic or blastic bone lesion. Mild to moderate degenerative spinal changes. CT/CT chest wo con - High Res IMPRESSION: 1. Study limited by mild respiratory motion artifact and patient body habitus. No active pulmonary disease identified. 2. Stable pulmonary nodules including a average diameter 6 mm nodule in the left medial apex, which appears and measures slightly smaller than previously, suggesting a benign entity. Consider 1 year follow-up. 3. No new or suspicious pulmonary nodules. 4. Previously seen airspace disease in the posterior right lower lobe has resolved. 5. Mild cardiac enlargement. 6. Moderate-sized hiatus hernia. Patient has undergone prior gastric sleeve. 7. Additional ancillary findings as discussed in the body of the report. Fleischner guidelines were followed.
== END 2024-04-29 07:23 | disposition home or self-care (01) ==
LOC: HO.CT 07:22
PROVIDERS: PCP Internal Medicine; Visit Provider Internal Medicine
DX: R91.1 Solitary pulmonary nodule (principal)
CPT/HCPCS: 71250

== ENCOUNTER → 2024-04-29 07:24 | Outpatient (BNV) | payer MEDICARE, MEDICAID, SELFPAY | PROVIDERS: PCP Internal Medicine; Visit Provider Radiology Diagnostic Radiology | DX: R91.1 Solitary pulmonary nodule (principal) | CPT/HCPCS: 71250 ==

== ENCOUNTER 2024-07-19 13:08 | Outpatient (AMB) | payer MEDICARE, MEDICAID, SELFPAY ==
[2024-07-19 13:10] VITALS: BP 130/80; PULSE 105
--- NOTE | 2024-07-19 13:10 | MHC.OFFVIS ---
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: No Accompanied by: Self / Same As Patient Allergies codeine [CODEINE] Allergy (Severe, Verified 03/20/24 09:38) NAUSEA & SEVERE VOMITING, stomach upset Medication List - Last Reconciled 07/19/24 by Roseanne Newton NP-C cholecalciferol (vitamin D3) 25 mcg PO DAILY citalopram 20 mg PO DAILY dicyclomine 10 mg PO QID PRN glucosamine HCl PO lisinopril 40 mg PO DAILY metoprolol succinate ER 25 mg PO DAILY nystatin 1 appl topical BID PRN HPI HPI f/u per dc: Details: Marcelino is a 68-year-old female with past medical history of morbid obesity, hypertension, impaired fasting glucose, obstructive sleep apnea, untreated, shortness of breath with exertion who presents for follow-up. Today she reports her breathing is overall unchanged since her last visit 6 months ago. Has shortness of breath with activity, no shortness of breath at rest, no PND, orthopnea, pitting edema. She denies any chest discomfort, PND, orthopnea or edema. She has no lightheadedness, presyncope, syncope, falls. She admits to being mostly sedentary. She ambulates with a wheeling walker. She is not able to tolerate a CPAP mask. She has been taking all her meds as directed. She is very anxious about being in the doctor's office. [facility] Medical History Pruritic intertrigo Pulmonary nodule, left History of COVID-19 Mixed anxiety and depressive disorder Morbid obesity due to excess calories Cataracts, bilateral Osteopenia of left hip Vitamin D deficiency Impaired fasting glucose DENISE (obstructive sleep apnea) Essential hypertension Surgical History Hx of gastric bypass History of total hip replacement Family History Father No problems noted. Mother No problems noted. Maternal Aunt Mental health disorder Social History Housing: House Alcohol intake: never Patient Tobacco Use Status: Never used Tobacco e-Cigarette/Vaping Use: Never Used service: No Current occupational status: retired Cognitive needs: No Hearing needs: No Vision needs: No Review of Systems Const All systems reviewed & are unremarkable except as noted in HPI and below Denies chills, Denies fatigue, Denies fever(s), Denies frequent falls, Denies weakness, Denies weight gain and Denies weight loss ENT Denies dizziness Card Denies chest pain, Denies leg edema, Denies lightheadedness, Denies palpitations, Reports dyspnea and Reports dyspnea on exertion Resp Denies cough, Reports dyspnea and Reports dyspnea on exertion GI Denies hematochezia Musc Details: ambulates slowly with walker Reports abnormal gait, Denies muscle weakness, Denies numbness, Denies radiating pain into limb and Denies tingling Neuro Reports abnormal gait, Denies dizziness, Denies frequent falls, Denies numbness, Denies tingling and Denies weakness Endo Denies fatigue and Denies palpitations Physical Exam Vital Signs: Last Vital Signs Pulse 105 H 07/19/24 13:10 BP 130/80 07/19/24 13:10 Const Other: morbidly obese General: cooperative, comfortable and no acute distress Orientation/consciousness: patient oriented x3 Neck Neck: Yes normal visual inspection Resp Effort & Inspection: normal respiratory effort Auscultation: clear to auscultation bilaterally, no crackles, no rales, no rhonchi and no wheezes Cardio Rate: regular rate Rhythm: regular rhythm Heart sounds: S1 normal heart sound present, S2 normal heart sound present, no murmurs and no rubs Skin General skin exam: no rashes or lesions noted Neuro General: patient oriented x3 Extrem General: Yes normal to inspection, No no pedal edema and No calf tenderness Psych Appearance: grossly normal Mental Status: mental status grossly normal Speech and movement: Normal speech and movement present Office Procedures EKG Details: Today, read by me, sinus tachycardia, rate 105, QTC 428 milliseconds [id number], Complete Assessment & Plan Assessment & Plan (1) Shortness of breath: Code(s): R06.02 - Shortness of breath Category: Medical Plan: History of shortness of breath with exertional activities. ER evaluation on 06/02/2023 for shortness of breath without acute findings. Her symptom did improve some last year when her blood pressure was better controlled. An echocardiogram was done on 07/04/2023 showing EF greater than 70%, severe increase in the LV wall thickness, normal valves, grade 1 diastolic dysfunction. Last prior echo done 05/13/2016 showed mild LVH. Today she tells me her breathing has been overall unchanged in last 6 months. She does not appear fluid overloaded on examination though her obesity makes this more challenging. With her severe LVH it is very important keep her blood pressure well controlled. Blood pressure today 130/80. She continues on lisinopril 40 mg daily. Metoprolol has been added last visit however she tells me she did not like how it made her feel and she is no longer taking it. The need for Low-salt diet reviewed. Benefits of weight loss discussed. Continue activity as tolerated. Cardiology follow-up in 9 months, sooner if needed (2) Irregular heartbeat: Code(s): I49.9 - Cardiac arrhythmia, unspecified Category: Medical Plan: Holter monitor done on 07/04/2023 for 3 days shows sinus rhythm with average heart rate 71, occasional PACs, ectopic atrial events, longest 10 beats, symptoms correlate with sinus rhythm or sinus tach. Low-dose metoprolol added last visit. She only took a few doses and did not like how she felt and stopped it. She is not noticing any concerning heart palpitations. Will continue to follow (3) DENISE (obstructive sleep apnea): Comment: not using CPAP Code(s): G47.33 - Obstructive sleep apnea (adult) (pediatric) Category: Medical Plan: Not able to tolerate CPAP (4) Essential hypertension: Code(s): I10 - Essential (primary) hypertension Category: Medical Plan: As above (5) Morbid obesity due to excess calories: Code(s): E66.01 - Morbid (severe) obesity due to excess calories Category: Medical Plan Time spent on chart review, documentation, interview and assessment Medications: Discontinued metoprolol succinate ER Discontinued Reason: Doctor's Order 25 mg PO DAILY 30 tabs 5RF Coding Level of Care Code Est Pt Level 3 (00479) Diagnoses Shortness of breath R06.02 Irregular heartbeat I49.9 DENISE (obstructive sleep apnea) G47.33 Essential hypertension I10 Morbid obesity due to excess calories E66.01 CPT Codes EKG - CPT: 68333-[id number], Complete ([id number]) Time Spent (min) 24
== END 2024-07-19 13:41 | disposition home or self-care (01) ==
PROVIDERS: PCP Internal Medicine; Visit Provider Nurse Practitioner Family
DX: R06.02 Shortness of breath (principal); I49.9 Cardiac arrhythmia, unspecified; G47.33 Obstructive sleep apnea (adult) (pediatric); I10 Essential (primary) hypertension; E66.01 Morbid (severe) obesity due to excess calories
CPT/HCPCS: 93010; 99213

== ENCOUNTER → 2024-07-19 13:08 | Outpatient (BNVA) | payer MEDICARE, MEDICAID, SELFPAY | PROVIDERS: PCP Internal Medicine; Visit Provider Nurse Practitioner Family | DX: R06.02 Shortness of breath (principal); I10 Essential (primary) hypertension; I49.9 Cardiac arrhythmia, unspecified; G47.33 Obstructive sleep apnea (adult) (pediatric); E66.01 Morbid (severe) obesity due to excess calories | CPT/HCPCS: 93005; 99212 ==

== ENCOUNTER 2024-08-12 09:26 | Outpatient (AMB) | payer MEDICARE, MEDICAID, SELFPAY ==
--- NOTE | 2024-08-12 09:36 | A.OFFVIS_ITS ---
Vital Signs 08/12/24 09:37 Height 5 ft 6 in Weight 341 lb BMI 55.0 Intake Visit Reasons: OV- B/L OA of the knees last inj 01/22/24 Intake Note: Marcelino is a 69 year old female who presents today for a follow up of her bilateral knee OA. Patient was last seen on 01/22/24 where both of her knees were injected. Patient is not a surgical candidate. Today, patient would like to repeat bilateral knee injections considering the last set of injections provided relief. Allergies codeine [CODEINE] Allergy (Severe, Verified 08/12/24 09:38) NAUSEA & SEVERE VOMITING, stomach upset HPI HPI OV- B/L OA of the knees last inj 01/22/24: Details: Marcelino is a 69 year old female who presents today for a follow up of her bilateral knee OA. Patient was last seen on 01/22/24 where both of her knees were injected. Patient is not a surgical candidate. Today, patient would like to repeat bilateral knee injections considering the last set of injections provided relief. [facility] Medical History Pruritic intertrigo Pulmonary nodule, left History of COVID-19 Mixed anxiety and depressive disorder Morbid obesity due to excess calories Cataracts, bilateral Osteopenia of left hip Vitamin D deficiency Impaired fasting glucose DENISE (obstructive sleep apnea) Essential hypertension Surgical History (Updated 08/12/24 @ 10:11 by Melvin Pisano MD) Hx of gastric bypass History of total hip replacement Family History Father No problems noted. Mother No problems noted. Maternal Aunt Mental health disorder Social History Housing: House Alcohol intake: never Patient Tobacco Use Status: Never used Tobacco e-Cigarette/Vaping Use: Never Used service: No Current occupational status: retired Cognitive needs: No Hearing needs: No Vision needs: No Physical Exam Vital Signs: BMI result Body Mass Index 55.0 Const Nutritional Appearance: obese morbidly obese Extrem Other: ttp medial compartment bilateral knees Office Procedures Joint Injection/Aspiration Joint Injection/Aspiration Details: Injected 1 mL of Decadron and 3 mL 1% lidocaine and 3 mL of 0.25% Marcaine. Site was prepped using aseptic technique. Patient tolerated the procedure well. Primary Site: right knee Secondary Site: left knee Approach Used: anterolateral Coding 38282 - Large joint 61975 - Glenohumeral/Tronchanteric Bursa/Intraarticular Procedure code (CPT) selection complete Assessment & Plan Assessment & Plan (1) Osteoarthritis of knees, bilateral: Code(s): M17.0 - Bilateral primary osteoarthritis of knee Category: Medical Qualifiers: Osteoarthritis type: primary Qualified Code(s): M17.0 - Bilateral primary osteoarthritis of knee Plan: I injected bilateral knees today. She is suffering from back pain and knee pain. (2) Hx of gastric bypass: Comment: 03/23/2018, [facility] Dr. Ramos Code(s): Z98.84 - Bariatric surgery status Category: Surgical Plan: She has seemingly had a failed gastric bypass (3) History of total hip replacement: Comment: 12/2012, Dr. Pisano Code(s): Z96.649 - Presence of unspecified artificial hip joint Category: Surgical Plan: Right hip is not painful with excellent range of motion considering her limited lumbar motion. (4) Morbid obesity due to excess calories: Code(s): E66.01 - Morbid (severe) obesity due to excess calories Category: Medical Plan: She seems to be a candidate for medical management of obesity as she had a failed gastric bypass. She is seeing her primary care next month and we will discuss this. Coding Level of Care Code Est Pt Level 3 (32765) Complex EM visit Add On G2211 Diagnoses Primary osteoarthritis of both knees M17.0 Osteoarthritis type: primary Hx of gastric bypass Z98.84 History of total hip replacement Z96.649 Morbid obesity due to excess calories E66.01 CPT Codes Coding - Large joint: 92055 - Large joint ([id number]) Coding - Joint 7: 49238 - Glenohumeral/Tronchanteric Bursa/Intraarticular ([id number])
[2024-08-12 09:37] VITALS: BMI 55.0
== END 2024-08-12 09:59 | disposition home or self-care (01) ==
PROVIDERS: PCP Internal Medicine; Visit Provider Orthopaedic Surgery
DX: M17.0 Bilateral primary osteoarthritis of knee (principal); Z96.641 Presence of right artificial hip joint; E66.01 Morbid (severe) obesity due to excess calories; Z98.84 Bariatric surgery status
CPT/HCPCS: 20610; 99213

== ENCOUNTER → 2024-08-12 09:26 | Outpatient (BNVA) | payer MEDICARE, MEDICAID, SELFPAY | PROVIDERS: PCP Internal Medicine; Visit Provider Orthopaedic Surgery | DX: M17.0 Bilateral primary osteoarthritis of knee (principal); E55.9 Vitamin D deficiency, unspecified; E66.01 Morbid (severe) obesity due to excess calories; Z68.43 Body mass index [BMI] 50.0-59.9, adult; Z98.84 Bariatric surgery status; Z96.641 Presence of right artificial hip joint | CPT/HCPCS: 20610; 99212; J0665; J1100 ==

== ENCOUNTER 2024-09-23 10:36 | Outpatient (AMB) | payer MEDICARE, MEDICAID, SELFPAY ==
--- NOTE | 2024-09-23 11:03 | A.OFFPC_ITS ---
Vital Signs 09/23/24 11:17 Height 5 ft 6 in Weight 333 lb BMI 53.7 BP 134/60 Blood Pressure Location Lt brachial Position Sitting Pulse 106 H Pulse Source Pulse Oximeter Pulse Oximetry (%) 98 Intake Visit Reasons: 6 Month follow up Intake Note: Pt is here today for her 6mo. f/u Allergies codeine [CODEINE] Allergy (Severe, Verified 09/23/24 11:33) NAUSEA & SEVERE VOMITING, stomach upset Medication List - Last Reconciled 09/23/24 by Yasmin Wagner MD cholecalciferol (vitamin D3) 25 mcg PO DAILY citalopram 20 mg PO DAILY dicyclomine 10 mg PO QID PRN glucosamine HCl PO lisinopril 40 mg PO DAILY nystatin 1 appl topical BID PRN Tobacco use date assessed: 09/23/24 Fall risk assessment: No Falls in past year Last assessed Fall Risk: 09/23/24 Dental Screening Dental Screen Date: 09/23/24 Did you have a dental visit in the last 12 months?: Yes Did you have a dental problem in the last 6 months where you did not have access to dental care?: No Was dental information given to patient?: Patient has dentist HPI 6 Month follow up HPI Details 69-year-old lady with past medical histo ry significant for hypertension, mixed anxiety depression, morbid obesity, osteopenia, impaired fasting glucose, here today for follow-up. She has been compliant with her medications, tries to follow recommended diet, and swims at the [facility] for her exercise. Blood pressure stable controlled on present treatment. She had recent fasting labs done which showed PFSH Medical History Pruritic intertrigo Pulmonary nodule, left History of COVID-19 Mixed anxiety and depressive disorder Morbid obesity due to excess calories Cataracts, bilateral Osteopenia of left hip Vitamin D deficiency Impaired fasting glucose DENISE (obstructive sleep apnea) Essential hypertension Surgical History (Updated 08/12/24 @ 10:11 by Melvin Pisano MD) Hx of gastric bypass History of total hip replacement Family History Father No problems noted. Mother No problems noted. Maternal Aunt Mental health disorder Social History Housing: House Alcohol intake: never Patient Tobacco Use Status: Never used Tobacco e-Cigarette/Vaping Use: Never Used service: No Current occupational status: retired Cognitive needs: No Hearing needs: No Vision needs: No Questionnaire PHQ-9 Over the last 2 weeks, how often have you been bothered by any of the following problems? 1. Little interest or pleasure in doing things: not at all 2. Feeling down, depressed, or hopeless: not at all 3. Trouble falling or staying asleep, or sleeping too much: several days 4. Feeling tired or having little energy: several days 5. Poor appetite or overeating: not at all 6. Feeling bad about yourself - or that you are a failure or have let yourself or your family down: not at all 7. Trouble concentrating on things, such as reading the newspaper or watching television: not at all 8. Moving or speaking so slowly that other people could have noticed. Or the opposite - being so fidgety or restless that you have been moving around a lot more than usual: not at all 9. Thoughts that you would be better off or of hurting yourself in some way: not at all Total score: 2 Depression Screening Interpretation: Negative Depression Screening Done: Yes 22820 - PHQ-9 Billing: Yes Source: Developed by Drs. Magdy Carmen, Keri Connor, Jose Boyd and colleagues, with an educational kelsey from [employer] Thrive Questionnaire Date Thrive assessed: 09/23/24 I am a: Patient What is your living situation today?: I have a steady place to live Within the past 12 months, did the food you bought not last and you didn't have the money to get more?: Never true Within the past 12 months, did you worry whether your food would run out before you got money to buy more?: Never true Do you have trouble paying for medicines?: No Do you have trouble getting transportation to medical appointments?: No Do you have trouble paying your heating and electricity bill?: No Do you have trouble taking care of your child, family member or friend?: No Do you have trouble with day-to-day activities such as bathing, preparing meals, shopping, managing finances, etc.?: No Are you currently unemployed and looking for a job?: No Are you interested in more education?: No Please select the resources that you would like help with: None Currently or been in a relationship where the following occur: No concerns reported THRIVE Score: 0 AUDIT C Alcohol Use Questionnaire (AUDIT-C) 1. How often do you have a drink containing alcohol?: Never Total Score: 0 IRAIS-7 AMB Questionnaire IRAIS-7 Date IRAIS - 7 assessed: 09/23/24 Feeling nervous, anxious, or on edge: 0 = Not at all Not being able to stop or control worryin = Not at all Worrying too much about different things: 0 = Not at all Trouble relaxin = Not at all Being so restless that it is hard to sit still: 0 = Not at all Becoming easily annoyed or irritable: 0 = Not at all Feeling afraid as if something awful might happen: 0 = Not at all Total IRAIS-7 score (0-4 normal; 5-9 mild; 10-14 moderate; 15-21 severe): 0 Source: Developed by Drs. Magdy Carmen, Keri Connor, Jose Boyd and colleagues, with an educational kelsey from [employer] IRAIS-7 Assessment Billing IRAIS-7 Assessment Tool: IRAIS-7 Assessment 70490 Review of Systems Const All systems reviewed & are unremarkable except as noted in HPI and below Denies chills, Denies fatigue, Denies fever(s), Denies frequent falls, Denies weakness, Denies weight gain and Denies weight loss Eyes Details: Currently sees Dr. Fuentes, has some haziness in her left eye after cataract surgery, is going to be scheduled for laser ENT Details: Get 6 months dental prophylaxis Denies dizziness Card Denies chest pain, Denies leg edema, Denies lightheadedness, Denies palpitations, Reports dyspnea and Reports dyspnea on exertion Resp Denies cough, Reports dyspnea, Reports dyspnea on exertion and Denies wheezing GI Denies hematochezia Denies hematuria, Denies urinary frequency and Denies dysuria Musc Details: ambulates slowly with walker Reports abnormal gait, Reports back pain, Denies muscle weakness, Denies numbness, Denies radiating pain into limb and Denies tingling Skin/Breast Denies rash Neuro Denies Abnormal speech present, Reports abnormal gait, Denies dizziness, Denies frequent falls, Denies numbness, Denies tingling and Denies weakness Psych Reports no additional complaints Endo Denies fatigue and Denies palpitations Aly/Lymph Reports no additional complaints Aller/Immun Denies wheezing Physical exam (Primary Care) Vital Signs: Last Vital Signs Pulse 106 H 09/23/24 11:17 BP 134/60 09/23/24 11:17 Pulse Ox 98 09/23/24 11:17 BMI result Body Mass Index 53.7 Tobacco/Smoking Status: Tobacco use Status Tobacco use date assessed 09/23/24 09/23/24 11:05 Patient Tobacco Use Status Never used Tobacco 09/23/24 11:05 e-Cigarette/Vaping Use Never Used 09/23/24 11:05 PHQ-9: PHQ-9 Score PHQ-9: Total score 2 09/23/24 11:49 Depression Screening Interpretation: Negative Thrive Assessment: Date of Thrive Assessment Date Thrive assessed 09/23/24 09/23/24 11:05 Currently or been in a relationship where the following occur: No concerns reported Const Other: Morbidly obese female, alert oriented x3, no acute distress noted ambulatory without assistance General: no acute distress, alert and awake Nutritional Appearance: obese morbidly obese Orientation/consciousness: patient oriented x3 HENMT Head: Yes normocephalic Ears: external ears normal General nose exam: Normal external nose present and No nasal discharge present Face and sinus: Yes face symmetric Mouth: Normal oral and palatal mucosa present, oropharynx normal and moist mucous membranes Eyes General: appearance normal, both eyes and all related structures Neck Neck: Yes full ROM, Yes no lymphadenopathy and Yes supple Thyroid: Thyroid normal Resp Effort & Inspection: normal respiratory effort and able to speak in complete sentences Auscultation: clear to auscultation bilaterally Cardio Other: S1-S2 present regular rate and rhythm Rate: regular rate Rhythm: regular rhythm Heart sounds: S1 normal heart sound present and S2 normal heart sound present GI Palpation (GI): Soft to palpation, nontender, no guarding and no masses Auscultation: normal bowel sounds General: Yes no CVA tenderness Back/Spine/Pelvis Back: no CVA tenderness and No back tenderness Neuro General: patient oriented x3, gait normal, tone normal, moves all extremities, no focal motor deficits and CN's II-XI intact bilaterally Cognition (Neuro): normal cognition Speech: No Abnormal speech present Extrem General: Yes full ROM, Yes no joint enlargement, Yes no clubbing, cyanosis or edema and Yes no calf tenderness Psych Appearance: grossly normal and well kempt Mental Status: mental status grossly normal Speech and movement: Normal speech and movement present Affect: normal affect Attitude: cooperative Thought process: Normal thought process present Thought content: Normal thought content present Coding Level of Care Code Est Pt Level 4 (02628) Complex EM visit Add On G2211 Diagnoses Essential hypertension I10 Impaired fasting glucose R73.01 Mixed anxiety and depressive disorder F41.8 Vitamin D deficiency E55.9 Low back pain potentially associated with radiculopathy M54.50 Additional Codes IRAIS-7 Assessment Billing - IRAIS-7 Assessment Tool: IRAIS-7 Assessment 87597 ([id number]) PHQ-9 - 21909 - PHQ-9 Billing: Yes ([id number]) Assessment & Plan Assessment & Plan (1) Essential hypertension: Code(s): I10 - Essential (primary) hypertension Category: Medical Plan: Continue with lisinopril 40 mg daily, reinforced importance of following a low- salt diet and staying active (2) Impaired fasting glucose: Code(s): R73.01 - Impaired fasting glucose Category: Medical Plan: Your previous fasting blood sugars were elevated above 100 mg/dL. Will check t another fasting blood sugar level . Impaired glucose metabolism increases the risk for developing diabetes mellitus type 2, as well as heart attack and stroke later on. Lifestyle changes that promotes weight loss, healthy eating habits, and regular exercise are important, and can prevent the progression to diabetes (3) Mixed anxiety and depressive disorder: Code(s): F41.8 - Other specified anxiety disorders Category: Medical Plan: Continue citalopram 20 mg daily (4) Vitamin D deficiency: Code(s): E55.9 - Vitamin D deficiency, unspecified Plan: Vitamin-D level ordered, continue with cholecalciferol 25 mg daily (5) Low back pain potentially associated with radiculopathy: Code(s): M54.50 - Low back pain, unspecified Plan: X-ray Of lumbar spine ordered. May continue taking ibuprofen 200 mg every 8 hours as needed only for severe pain. May alternate with Tylenol arthritis 650 mg per tablet Orders: Orders Alanine Aminotransferase 09/23/24 E55.9 - Vitamin D deficiency, unspecified, E66.01 - Morbid (severe) obesity due to excess calories, F41.8 - Other specified anxiety disorders, I10 - Essential (primary) hypertension, M85.852 - Other specified disorders of bone density and structure, left thigh, R73.01 - Impaired fasting glucose Aspartate Amino Transferase 09/23/24 E55.9 - Vitamin D deficiency, unspecified, E66.01 - Morbid (severe) obesity due to excess calories, F41.8 - Other specified anxiety disorders, I10 - Essential (primary) hypertension, M85.852 - Other specified disorders of bone density and structure, left thigh, R73.01 - Impaired fasting glucose XR lumbar spine 6V w bending 09/23/24 M54.50 - Low back pain, unspecified Vitamin D 25-OH Total 09/23/24 E55.9 - Vitamin D deficiency, unspecified, E66.01 - Morbid (severe) obesity due to excess calories, F41.8 - Other specified anxiety disorders, I10 - Essential (primary) hypertension, M85.852 - Other specified disorders of bone density and structure, left thigh, R73.01 - Impaired fasting glucose Basic Metabolic Panel Fasting 09/23/24 E55.9 - Vitamin D deficiency, unspecified, E66.01 - Morbid (severe) obesity due to excess calories, F41.8 - Other specified anxiety disorders, I10 - Essential (primary) hypertension, M85.852 - Other specified disorders of bone density and structure, left thigh, R73.01 - Impaired fasting glucose Hemoglobin A1c 09/23/24 E55.9 - Vitamin D deficiency, unspecified, E66.01 - Morbid (severe) obesity due to excess calories, F41.8 - Other specified anxiety disorders, I10 - Essential (primary) hypertension, M85.852 - Other specified disorders of bone density and structure, left thigh, R73.01 - Impaired fasting glucose
[2024-09-23 11:17] VITALS: BP 134/60; PULSE 106; O2SAT 98; BMI 53.7
== END 2024-09-23 13:55 | disposition home or self-care (01) ==
PROVIDERS: PCP Internal Medicine; Visit Provider Internal Medicine
DX: I10 Essential (primary) hypertension (principal); R73.01 Impaired fasting glucose; F41.8 Other specified anxiety disorders; E55.9 Vitamin D deficiency, unspecified; M54.50 Low back pain, unspecified

== ENCOUNTER → 2024-09-23 10:36 | Outpatient (BNVA) | payer MEDICARE, MEDICAID, SELFPAY | PROVIDERS: PCP Internal Medicine; Visit Provider Internal Medicine | DX: I10 Essential (primary) hypertension (principal); R73.01 Impaired fasting glucose; F41.8 Other specified anxiety disorders; E55.9 Vitamin D deficiency, unspecified; M54.50 Low back pain, unspecified | CPT/HCPCS: 96127; 99212 ==

== ENCOUNTER 2025-02-21 08:33 | Outpatient (REF) | payer MEDICARE, MEDICAID, SELFPAY ==
--- NOTE | ~2025-02-21 | MM_ITS ---
EXAMINATION: DXA BONE DENSITY AXIAL HISTORY: DISORDER OF BONE TECHNIQUE: Sampa Dual energy absorptiometry (DEXA) of the lumbar spine, total left hip, and femoral neck was performed. COMPARISON: Comparison is made with the prior examination dated 01/16/2020. FINDINGS: The bone mineral density of the lumbar spine is 1.273 with a T-score of 0.8, and a Z-score of 1.3. This is indicative of normal bone mineral density. This represents a BMD change of 9.0% compared to the prior exam. This is statistically significant. The bone mineral density of the left total hip is 0.873 with a T-score of -1.1, and a Z-score of -0.4. This is indicative of osteopenia. This represents a BMD change of 4.4% compared to the prior exam. This is statistically significant. The bone mineral density of the left femoral neck is 0.777 with a T-score of -1.9, and a Z-score of -0.9. This is indicative of osteopenia. This represents a BMD change of -9.8% compared to the prior exam. FRACTURE RISK: The FRAX index suggests a ten year probability of major osteoporotic fracture of 8.8%, and of hip fracture 1.5%. MM/XR DEXA axial skeleton IMPRESSION: Based on bone mineral density, and according to World Health Organization (WHO) criteria, the diagnosis is consistent with osteopenia. All bone density values are in grams per centimeter squared (g/cm2). Statistically, 68% of repeat scans fall within 1 SD (+/- 0.010 g/cm2 for AP spine L1-L4) and 1 SD (+/- 0.012 g/cm2 for femur total) FRAX is a trademark of the [employer]'s [place] [employer] Metabolic Bone Disease, a World Health Organization (WHO) Collaborating Center. Electronically signed by: Magdy Toscano MD 02/21/2025 09:52 AM EDT
--- OUTSIDE RECORDS SUMMARY | 2025-02-21 08:35 | XMS_ITS | Clinical Summary ---
Author Organization [facility] ity Address [address] [place] [address] Care Team Providers Care Automotive Tire Tester Name Role Phone Stephy Pichardo MD Primary Care Provider [phone] Social History Tobacco Use Types Packs/Day Years Used Date Smoking Tobacco: Never Assessed Comments Unknown Sex and Gender Information Value Date Recorded Sex Assigned at Not on file Legal Sex Female 9:38 AM EST Gender Identity Not on file Sexual Orientation Not on file Plan of Treatment Health Maintenance Due Date Last Done Comments Breast Cancer Screening 1955 DTaP,Tdap,and Td Vaccines (1 - Tdap) 1972 Pneumococcal Vaccine: 50+ Ye ars (1 of 1 - PCV) 2003 Zoster Vaccines (1 of 2) 2003 COVID-19 Vaccine ( - 2023-2 5 season) 2024 Influenza Vaccine (Season Ended) 2025 RSV Immunization Adult Patie nts (1 - 1-dose 75+ series) 2028 HIB Vaccines Aged Out No longer eligi ble based on patient's age to complete this topic HPV Vaccines Aged Out No longer eligi ble based on patient's age to complete this topic Hepatitis A Vaccines Aged Out No long er eligible based on patient's age to complete this topic Hepatitis B Vaccines Aged Out No long er eligible based on patient's age to complete this topic IPV Vaccines Aged Out No longer eligi ble based on patient's age to complete this topic MMR Vaccines Aged Out No longer eligi ble based on patient's age to complete this topic Meningococcal ACWY Vaccine Aged Out N o longer eligible based on patient's age to complete this topic Meningococcal B Vaccine Aged Out No l onger eligible based on patient's age to complete this topic RSV Immunization Patients Un lavinia 20 months Aged Out No longer eligible b ased on patient's age to complete this topic Varicella Vaccines Aged Out No longer eligible based on patient's age to complete this topic Care Teams Automotive Tire Tester Relationship Specialty Start Date End Date Stephy Pichardo MD [address] [place] [address] PCP - General 03/07/1998
== END 2025-02-21 08:34 | disposition home or self-care (01) ==
LOC: HO.MAMMO 08:33
PROVIDERS: PCP Internal Medicine; Visit Provider Internal Medicine
DX: Z12.31 Encounter for screening mammogram for malignant neoplasm of breast (principal); Z13.820 Encounter for screening for osteoporosis; M85.852 Other specified disorders of bone density and structure, left thigh
CPT/HCPCS: 77063; 77067; 77080

== ENCOUNTER → 2025-02-21 09:15 | Outpatient (BNV) | payer MEDICARE, MEDICAID, SELFPAY | PROVIDERS: PCP Internal Medicine; Visit Provider Radiology Diagnostic Radiology | DX: E28.39 Other primary ovarian failure (principal) | CPT/HCPCS: 77080 ==

== ENCOUNTER 2025-02-25 08:26 | Outpatient (REF) | payer MEDICARE, MEDICAID, SELFPAY ==
--- NOTE | ~2025-02-25 | XR_ITS ---
EXAMINATION: XR LUMBOSACRAL SPINE CLINICAL INFORMATION: M54.50 - Low back pain, unspecified COMPARISON: None available. TECHNIQUE: 5 views of the lumbar spine, inclusive of bilateral oblique views, were obtained. FINDINGS: There is a minimal left convex scoliosis, apex at L3. There is a normal lordosis. There is normal bone mineralization. There is no fracture, compression deformity, or suspicious bone lesion. There is a 3 mm degenerative appearing retrolisthesis of L3 on L4. Trace degenerative anterolisthesis of L4 on L5. Alignment is otherwise anatomic. Severe disc degeneration is present L3-S1. There is otherwise only mild disc degeneration at levels above L3. There is normal facet alignment. There are no pars defects present. There are multilevel hypertrophic degenerative facet changes throughout, most significant spanning L3-S1. There are no suspicious soft tissue abnormalities. XR/XR lumbar spine 4V min IMPRESSION: 1. No acute bony abnormalities. 2. Moderate to severe multilevel spondylosis with mild associated levoconvex scoliosis. Electronically signed by: Freddy Donald MD 02/26/2025 01:15 PM EDT
--- OUTSIDE RECORDS SUMMARY | 2025-02-25 08:35 | XMS_ITS | Clinical Summary ---
Author Organization [facility] ity Address [address] [place] [address] Care Team Providers Care Bundles Hanger Name Role Phone Stephy Pichardo MD Primary Care Provider [phone] Social History Tobacco Use Types Packs/Day Years [...] age to complete this topic Care Teams Bundles Hanger Relationship Specialty Start Date End Date Stephy Pichardo MD [address] [place] [address] PCP - General 03/07/1998
[2025-02-25 10:27] LABS: Estimated Average Glucose 123 mg/dL; Hemoglobin A1C 132.4583 umol/L; Hemoglobin A1c % 5.9 % (<6.0); Total Hemoglobin (HGBA1C) 3242.5392 umol/L
[2025-02-25 10:49] LABS: Alanine Aminotransferase 11 U/L (0-31); Anion Gap 11 (12-20); Aspartate Amino Transferase 20 U/L (5-31); Blood Urea Nitrogen 22 mg/dL (9-16); Calcium 9.5 mg/dL (8.4-10.2); Carbon Dioxide 24 mmol/L (22-29); Chloride 108 mmol/L (96-108); Estimated Glomerular Filt Rate > 60; Glucose Fasting 134 mg/dL (60-99); Potassium 4.4 mmol/L (3.3-5.1); Sodium 139 mmol/L (135-145)
[2025-02-25 10:52] LABS: Vitamin D 25-OH Total 16.1 ng/mL (>30)
== END 2025-02-25 08:27 | disposition home or self-care (01) ==
LOC: HO.HMGCLDS 08:26
PROVIDERS: PCP Internal Medicine; Visit Provider Internal Medicine
DX: E55.9 Vitamin D deficiency, unspecified (principal); F41.8 Other specified anxiety disorders; E66.01 Morbid (severe) obesity due to excess calories; M85.852 Other specified disorders of bone density and structure, left thigh; R73.01 Impaired fasting glucose; I10 Essential (primary) hypertension; M54.50 Low back pain, unspecified
CPT/HCPCS: 36415; 72110; 80048; 82306; 83036; 84450; 84460

== ENCOUNTER → 2025-02-25 08:34 | Outpatient (BNV) | payer MEDICARE, MEDICAID, SELFPAY | PROVIDERS: PCP Internal Medicine; Visit Provider Radiology Diagnostic Radiology | DX: M54.50 Low back pain, unspecified (principal); M47.896 Other spondylosis, lumbar region; M41.86 Other forms of scoliosis, lumbar region | CPT/HCPCS: 72110 ==

== ENCOUNTER 2025-03-17 08:20 | Outpatient (AMB) | payer MEDICARE, MEDICAID, SELFPAY ==
--- NOTE | 2025-03-17 08:30 | A.OFFVIS_ITS ---
Intake Visit Reasons: Inj-B/L knees inj last inj 08/12/24 Intake Note: Marcelino is a 69 year old female who presents today for a follow up of her bilateral knee OA s/p bilateral knee injection on 08/12/24. Patient reports she found adequate relief with her last injections and would like to repeat today. Allergies codeine [CODEINE] Allergy (Severe, Verified 03/17/25 08:32) NAUSEA & SEVERE VOMITING, stomach upset HPI HPI Inj-B/L knees inj last inj 08/12/24: Details: Marcelino is a 69 year old female who presents today for a follow up of her bilateral knee OA s/p bilateral knee injection on 08/12/24. Patient reports she found adequate relief with her last injections and would like to repeat today. [facility] Medical History Pruritic intertrigo Pulmonary nodule, left History of COVID-19 Mixed anxiety and depressive disorder Morbid obesity due to excess calories Cataracts, bilateral Osteopenia of left hip Vitamin D deficiency Impaired fasting glucose DENISE (obstructive sleep apnea) Essential hypertension Surgical History (Updated 08/12/24 @ 10:11 by Melvin Pisano MD) Hx of gastric bypass History of total hip replacement Family History Father No problems noted. Mother No problems noted. Maternal Aunt Mental health disorder Social History Housing: House Alcohol intake: never Patient Tobacco Use Status: Never used Tobacco e-Cigarette/Vaping Use: Never Used service: No Current occupational status: retired Cognitive needs: No Hearing needs: No Vision needs: No Physical Exam Extrem Other: Skin clean dry and intact bilateral knees Office Procedures Joint Inj/Aspir; Non-Pain Clin Joint Injection/Drain Details: Injected 1 mL of Decadron and 3 mL 1% lidocaine and 3 mL of 0.25% Marcaine. Site was prepped using aseptic technique. Patient tolerated the procedure well. Shoulders, Hips, Knees, Knee Large Joint Injection 99962: Bilateral Knee Coding Procedure code (CPT) selection complete Assessment & Plan Assessment & Plan (1) Osteoarthritis of knees, bilateral: Code(s): M17.0 - Bilateral primary osteoarthritis of knee Category: Medical Qualifiers: Osteoarthritis type: primary Qualified Code(s): M17.0 - Bilateral primary osteoarthritis of knee Plan: Bilateral knee OA. Has not been able to lose the weight necessary to consider knee arthroplasty. Injections have been helpful. I injected bilateral knees today. Coding Level of Care Code Est Pt Level 3 (04823) Diagnoses Primary osteoarthritis of both knees M17.0 Osteoarthritis type: primary CPT Codes Shoulders, Hips, Knees, - Knee Large Joint Injection : Bilateral Knee ([id number])
--- OUTSIDE RECORDS SUMMARY | 2025-03-17 08:37 | XMS_ITS | Clinical Summary ---
Author Organization [facility] ity Address [address] [place] [address] Care Team Providers Care Storm Door Maker Name Role Phone Stephy Pichardo MD Primary Care Provider [phone] Social History Tobacco Use Types Packs/Day Years [...] age to complete this topic Care Teams Storm Door Maker Relationship Specialty Start Date End Date Stephy Pichardo MD [address] [place] [address] PCP - General 03/07/1998
== END 2025-03-17 08:50 | disposition home or self-care (01) ==
LOC: HO.HOS 08:21
PROVIDERS: PCP Internal Medicine; Visit Provider Orthopaedic Surgery
DX: M17.0 Bilateral primary osteoarthritis of knee (principal)
CPT/HCPCS: 20610

== ENCOUNTER → 2025-03-17 08:20 | Outpatient (BNVA) | payer MEDICARE, MEDICAID, SELFPAY | PROVIDERS: PCP Internal Medicine; Visit Provider Orthopaedic Surgery | DX: M17.0 Bilateral primary osteoarthritis of knee (principal) | CPT/HCPCS: 20610; J0665; J1100; J2003 ==

== ENCOUNTER 2025-03-31 12:29 | Outpatient (AMB) | payer MEDICARE, MEDICAID, SELFPAY ==
[2025-03-31 12:32] VITALS: BP 138/76; PULSE 104; RESP 17; TEMP 36.7; O2SAT 96; BMI 53.2
--- NOTE | 2025-03-31 12:32 | A.OFFPC_ITS ---
Vital Signs 03/31/25 12:32 Height 5 ft 6 in Weight 329 lb 6 oz BMI 53.2 BP 138/76 Blood Pressure Location Lt brachial Position Sitting Respiration 17 Pulse 104 H Pulse Source Pulse Oximeter Temp 98.1 F Temp Source Oral Pulse Oximetry (%) 96 Oxygen Delivery Method Room Air Intake Visit Reasons: PE Intake Note: Pt is here today for her annual physical. Last mammogram 02/21/25. Last bone density 02/21/25. Last colonoscopy 03/28/16 Allergies codeine [CODEINE] Allergy (Severe, Verified 04/01/25 01:26) NAUSEA & SEVERE VOMITING, stomach upset Medication List - Last Reconciled 04/01/25 by Yasmin Wagner MD cholecalciferol (vitamin D3) 25 mcg PO DAILY cholecalciferol (vitamin D3) 1,250 mcg PO QWEEK 3 months citalopram 20 mg PO DAILY dicyclomine 10 mg PO QID PRN glucosamine HCl PO lisinopril 40 mg PO DAILY nystatin 1 appl topical BID PRN Tobacco use date assessed: 03/31/25 Fall risk assessment: No Falls in past year Last assessed Fall Risk: 03/31/25 Dental Screening Dental Screen Date: 03/31/25 Did you have a dental visit in the last 12 months?: Yes Did you have a dental problem in the last 6 months where you did not have access to dental care?: No Was dental information given to patient?: Patient has dentist HPI PE HPI Details 69-year-old lady with history of osteoar thritis status post hip replacement, morbid obesity with history of gastric bypass surgery, history of mixed anxiety depression currently stable controlled on present treatment, has impaired fasting glucose, hypertension as well as vitamin-D deficiency and osteopenia of left femoral neck and left hip, here today for her physical exam. Has been feeling well, still having some difficulty with ambulation due to knee pain, goes to the [facility] at least 3 to 4 times a week to swim for exercise. Up-to-date with her screening mammogram and bone density scan, done last month, and is up-to-date with her screening colonoscopy, due again next year with Dr. Tony. [facility] Medical History (Updated 03/31/25 @ 13:16 by Yasmin Wagner MD) Vitamin D deficiency Pruritic intertrigo Pulmonary nodule, left History of COVID-19 Mixed anxiety and depressive disorder Morbid obesity due to excess calories Cataracts, bilateral Osteopenia of left hip Impaired fasting glucose DENISE (obstructive sleep apnea) Essential hypertension Surgical History Hx of gastric bypass History of total hip replacement Family History Father No problems noted. Mother No problems noted. Maternal Aunt Mental health disorder Social History Housing: House Alcohol intake: never Patient Tobacco Use Status: Never used Tobacco e-Cigarette/Vaping Use: Never Used service: No Current occupational status: retired Cognitive needs: No Hearing needs: No Vision needs: No Questionnaire PHQ-9 Over the last 2 weeks, how often have you been bothered by any of the following problems? 1. Little interest or pleasure in doing things: not at all 2. Feeling down, depressed, or hopeless: not at all 3. Trouble falling or staying asleep, or sleeping too much: not at all 4. Feeling tired or having little energy: several days 5. Poor appetite or overeating: not at all 6. Feeling bad about yourself - or that you are a failure or have let yourself or your family down: not at all 7. Trouble concentrating on things, such as reading the newspaper or watching television: not at all 8. Moving or speaking so slowly that other people could have noticed. Or the opposite - being so fidgety or restless that you have been moving around a lot more than usual: not at all 9. Thoughts that you would be better off or of hurting yourself in some way: not at all Total score: 1 Depression Screening Interpretation: Negative Depression Screening Done: Yes 33863 - PHQ-9 Billing: Yes Source: Developed by Drs. Magdy Carmen, Keri Connor, Jose Boyd and colleagues, with an educational kelsey from [employer]. Thrive Questionnaire Date Thrive assessed: 03/31/25 I am a: Patient What is your living situation today?: I have a steady place to live Within the past 12 months, did the food you bought not last and you didn't have the money to get more?: Never true Within the past 12 months, did you worry whether your food would run out before you got money to buy more?: Never true Do you have trouble paying for medicines?: No Do you have trouble getting transportation to medical appointments?: No Do you have trouble paying your heating and electricity bill?: No Do you have trouble taking care of your child, family member or friend?: No Do you have trouble with day-to-day activities such as bathing, preparing meals, shopping, managing finances, etc.?: No Are you currently unemployed and looking for a job?: No Are you interested in more education?: No Please select the resources that you would like help with: None Currently or been in a relationship where the following occur: No concerns reported THRIVE Score: 0 AUDIT C Alcohol Use Questionnaire (AUDIT-C) 1. How often do you have a drink containing alcohol?: Never 3. How often do you have six or more drinks on one occasion?: Never Total Score: 0 Score Reviewed/Action Taken: Yes IRAIS-7 AMB Questionnaire IRAIS-7 Date IRAIS - 7 assessed: 03/31/25 Feeling nervous, anxious, or on edge: 0 = Not at all Not being able to stop or control worryin = Not at all Worrying too much about different things: 0 = Not at all Trouble relaxin = Not at all Being so restless that it is hard to sit still: 0 = Not at all Becoming easily annoyed or irritable: 0 = Not at all Feeling afraid as if something awful might happen: 0 = Not at all Total IRAIS-7 score (0-4 normal; 5-9 mild; 10-14 moderate; 15-21 severe): 0 Source: Developed by Drs. Magdy Carmen, Keri Connor, Jose Boyd and colleagues, with an educational kelsey from [employer]. IRAIS-7 Assessment Billing IRAIS-7 Assessment Tool: IRAIS-7 Assessment 17179 Review of Systems Const Denies chills, Denies fatigue, Denies frequent falls, Denies weakness and Denies weight gain Eyes Details: Sees [facility] ENT Details: Gets dental cleaning every 6 months Denies dizziness Card Denies chest pain, Denies leg edema, Denies lightheadedness and Denies palpitations Resp Denies cough and Denies wheezing GI Denies hematochezia Denies hematuria, Denies urinary frequency and Denies dysuria Musc Details: ambulates slowly with walker Reports abnormal gait, Reports back pain, Denies muscle weakness, Denies numbness, Denies radiating pain into limb and Denies tingling Skin/Breast Denies rash Neuro Denies Abnormal speech present, Reports abnormal gait, Denies dizziness, Denies frequent falls, Denies numbness, Denies tingling and Denies weakness Psych Reports no additional complaints Endo Denies fatigue and Denies palpitations Aly/Lymph Reports no additional complaints Aller/Immun Denies wheezing Physical exam (Primary Care) Vital Signs: Last Vital Signs Temp 98.1 F 03/31/25 12:32 Pulse 104 H 03/31/25 12:32 Resp 17 03/31/25 12:32 BP 138/76 03/31/25 12:32 Pulse Ox 96 03/31/25 12:32 Oxygen Delivery Method Room Air 03/31/25 12:32 BMI result Body Mass Index 53.2 Tobacco/Smoking Status: Tobacco use Status Tobacco use date assessed 03/31/25 03/31/25 12:33 Patient Tobacco Use Status Never used Tobacco 03/31/25 12:33 e-Cigarette/Vaping Use Never Used 03/31/25 12:33 PHQ-9: PHQ-9 Score PHQ-9: Total score 1 04/01/25 01:26 Depression Screening Interpretation: Negative Thrive Assessment: Date of Thrive Assessment Date Thrive assessed 03/31/25 03/31/25 12:45 Currently or been in a relationship where the following occur: No concerns reported Const Other: Morbidly obese female, alert oriented x3, no acute distress noted , ambulatory without assistance [facility] Head: Yes normocephalic Ears: external ears normal General nose exam: Normal external nose present and No nasal discharge present Face and sinus: Yes face symmetric Mouth: Normal oral and palatal mucosa present, oropharynx normal and moist mucous membranes Eyes General: appearance normal, both eyes and all related structures Neck Neck: Yes full ROM, Yes no lymphadenopathy and Yes supple Thyroid: Thyroid normal (Nonpalpable) Chest Other: Up-to-date with screening mammogram, done last month Resp Effort & Inspection: normal respiratory effort and able to speak in complete sentences Auscultation: clear to auscultation bilaterally Cardio Other: S1-S2 present regular rate and rhythm Rate: regular rate Rhythm: regular rhythm Heart sounds: S1 normal heart sound present and S2 normal heart sound present GI Palpation (GI): Soft to palpation, nontender, no guarding and no masses Auscultation: normal bowel sounds General: Yes no CVA tenderness Back/Spine/Pelvis Back: no CVA tenderness and No back tenderness Skin General skin exam: no rashes or lesions noted Neuro General: gait normal, tone normal, moves all extremities, no focal motor deficits and CN's II-XI intact bilaterally Cognition (Neuro): normal cognition Speech: No Abnormal speech present Extrem Other: Nonpitting pedal edema noted bilaterally, no calf tenderness, decreased range of motion in hip joints, crepitus in both knees General: Yes no calf tenderness Psych Appearance: grossly normal and well kempt Mental Status: mental status grossly normal Speech and movement: Normal speech and movement present Affect: normal affect Attitude: cooperative Thought process: Normal thought process present Thought content: Normal thought content present Results Reviewed Results Reviewed: Name: Marcelino Cross Age/Sex: 69/F : 1955 Unit#: [id number] Attend Dr: Yasmin Wagner MD Re02/25/25 Status: DEP REF Location: [facility] Disch: SPEC : [id number] SERG: 02/25/25 STATUS: COMP REQ : [id number] RECD: 02/25/25-[address]: Yasmin Wagner MD COMP: 02/25/25 ENTERED: 02/25/[address] [facility] [address]: ORDERED: Met Prof Fast, AST, ALT, Vitamin D 25-OH Test Result Flag Reference Sodium 139 135-145 mmol/L Potassium 4.4 3.3-5.1 mmol/L CL 108 96-108 mmol/L CO2 24 22-29 mmol/L Gap 11 L 12-20 BUN 22 H 9-16 mg/dL Creat 0.84 0.5-1.4 mg/dL eGFR > 60 Chronic Kidney Disease: Estimated GFR < 60 mL/min/1.73m2 Severe Kidney Disease: Estimated GFR < 15 mL/min/1.73m2 FBS 134 H 60-99 mg/dL A fasting glucose of 126 mg/dl or greater on more than one occasion is considered diagnostic of diabetes. CA 9.5 8.4-10.2 mg/dL AST (GOT) 20 5-31 U/L ALT (GPT) 11 0-31 U/L Vitamin D 25-OH 16.1 L >30 ng/mL Health Based Reference Values* < 20 ng/mL Deficient 20-30 ng/mL Insufficient > 30 ng/mL Sufficient Laboratory Tests 02/25/25 08:30 Estimat Average Glucose 123 Hemoglobin A1c % 5.9 Coding Level of Care Code Est Pt Prev Care >65y(64569) Diagnoses Annual visit for general adult medical examination with abnormal findings Z00.01 Osteopenia of left hip M85.852 Vitamin D deficiency E55.9 Essential hypertension I10 Primary osteoarthritis of both knees M17.0 Osteoarthritis type: primary Impaired fasting glucose R73.01 Morbid obesity due to excess calories E66.01 Mixed anxiety and depressive disorder F41.8 Additional Codes IRAIS-7 Assessment Billing - IRAIS-7 Assessment Tool: IRAIS-7 Assessment 19482 ([id number]) PHQ-9 - 94144 - PHQ-9 Billing: Yes ([id number]) Assessment & Plan Assessment & Plan (1) Annual visit for general adult medical examination with abnormal findings: Code(s): Z00.01 - Encounter for general adult medical examination with abnormal findings Plan: Reviewed recent fasting lab results with patient. Continue regular dental visit every 6 months and regular eye exams, at least every 2 years . Instructed to do self-breast exam, and continue with yearly mammogram, currently up-to-date together with bone density scan, latter due again in 2026. Up-to-date with her vaccines, and up-to-date with her colon cancer screening due again for repeat colonoscopy next year. (2) Osteopenia of left hip: Code(s): M85.852 - Other specified disorders of bone density and structure, left thigh Category: Medical Plan: Continue with regular exercise, screenings which affords get the [employer], continue taking calcium from dietary sources, and prescription sent for vitamin-D 3 supplements 36475 units per capsule to take once a week for the next few months. (3) Vitamin D deficiency: Code(s): E55.9 - Vitamin D deficiency, unspecified Category: Medical Plan: Rx sent for vitamin-D 350 1000 units per capsule to take once a week for the next 3 months. (4) Essential hypertension: Code(s): I10 - Essential (primary) hypertension Category: Medical Plan: Continue with lisinopril 40 mg daily. Reinforced importance of following a low sodium diet, getting regular exercise, and lowering stress levels. (5) Osteoarthritis of knees, bilateral: Code(s): M17.0 - Bilateral primary osteoarthritis of knee Category: Medical Qualifiers: Osteoarthritis type: primary Qualified Code(s): M17.0 - Bilateral primary osteoarthritis of knee Plan: Takes Tylenol as needed and glucosamine, stays active by swimming regularly at the [facility] (6) Impaired fasting glucose: Code(s): R73.01 - Impaired fasting glucose Category: Medical Plan: Your previous fasting blood sugars were elevated above 100 mg/dL. Latest hemoglobin A1c is at 5.9% Impaired glucose metabolism increases the risk for developing diabetes mellitus type 2, as well as heart attack and stroke later on. Lifestyle changes that promotes weight loss, healthy eating habits, and regular exercise are important, and can prevent the progression to diabetes (7) Morbid obesity due to excess calories: Code(s): E66.01 - Morbid (severe) obesity due to excess calories Category: Medical Plan: Continued regular exercise, adherence to healthy eating habits (8) Mixed anxiety and depressive disorder: Code(s): F41.8 - Other specified anxiety disorders Category: Medical Plan: Controlled on citalopram 20 mg daily Orders: Orders Vitamin D 25-OH Total 09/13/25 E55.9 - Vitamin D deficiency, unspecified, E66.01 - Morbid (severe) obesity due to excess calories, F41.8 - Other specified anxiety disorders, I10 - Essential (primary) hypertension, M17.0 - Bilateral primary osteoarthritis of knee, M85.852 - Other specified disorders of bone density and structure, left thigh, R73.01 - Impaired fasting glucose, Z00.01 - Encounter for general adult medical examination with abnormal findings Lipid Panel 09/13/25 E55.9 - Vitamin D deficiency, unspecified, E66.01 - Morbid (severe) obesity due to excess calories, F41.8 - Other specified anxiety di sorders, I10 - Essential (primary) hypertension, M17.0 - Bilateral primary osteoarthritis of knee, M85.852 - Other specified disorders of bone density and structure, left thigh, R73.01 - Impaired fasting glucose, Z00.01 - Encounter for general adult medical examination with abnormal findings Hemoglobin A1c 09/13/25 E55.9 - Vitamin D deficiency, unspecified, E66.01 - Morbid (severe) obesity due to excess calories, F41.8 - Other specified anxiety disorders, I10 - Essential (primary) hypertension, M17.0 - Bilateral primary osteoarthritis of knee, M85.852 - Other specified disorders of bone density and structure, left thigh, R73.01 - Impaired fasting glucose, Z00.01 - Encounter for general adult medical examination with abnormal findings Alanine Aminotransferase 09/13/25 E55.9 - Vitamin D deficiency, unspecified, E66.01 - Morbid (severe) obesity due to excess calories, F41.8 - Other specified anxiety disorders, I10 - Essential (primary) hypertension, M17.0 - Bilateral primary osteoarthritis of knee, M85.852 - Other specified disorders of bone density and structure, left thigh, R73.01 - Impaired fasting glucose, Z00.01 - Encounter for general adult medical examination with abnormal findings Basic Metabolic Panel Fasting 09/13/25 E55.9 - Vitamin D deficiency, unspecified, E66.01 - Morbid (severe) obesity due to excess calories, F41.8 - Other specified anxiety disorders, I10 - Essential (primary) hypertension, M17.0 - Bilateral primary osteoarthritis of knee, M85.852 - Other specified disorders of bone density and structure, left thigh, R73.01 - Impaired fasting glucose, Z00.01 - Encounter for general adult medical examination with abnormal findings Aspartate Amino Transferase 09/13/25 E55.9 - Vitamin D deficiency, unspecified, E66.01 - Morbid (severe) obesity due to excess calories, F41.8 - Other specified anxiety disorders, I10 - Essential (primary) hypertension, M17.0 - Bilateral primary osteoarthritis of knee, M85.852 - Other specified disorders of bone density and structure, left thigh, R73.01 - Impaired fasting glucose, Z00.01 - Encounter for general adult medical examination with abnormal findings Medications: New cholecalciferol (vitamin D3) 1,250 mcg PO QWEEK 3 months 13 caps 0RF E55.9 - Vitamin D deficiency, unspecified, M85.852 - Other specified disorders of bone density and structure, left thigh
--- OUTSIDE RECORDS SUMMARY | 2025-03-31 12:51 | XMS_ITS | Clinical Summary ---
Author Organization [facility] ity Address [address] [place] [address] Care Team Providers Care Cma Name Role Phone Stephy Pichardo MD Primary Care Provider [phone] Social History Tobacco Use Types Packs/Day Years [...] age to complete this topic Care Teams Cma Relationship Specialty Start Date End Date Stephy Pichardo MD [address] [place] [address] PCP - General 03/07/1998
== END 2025-03-31 14:20 | disposition home or self-care (01) ==
LOC: HO.HMCC 12:30
PROVIDERS: PCP Internal Medicine; Visit Provider Internal Medicine
DX: Z00.01 Encounter for general adult medical examination with abnormal findings (principal); M85.852 Other specified disorders of bone density and structure, left thigh; E66.01 Morbid (severe) obesity due to excess calories; Z68.43 Body mass index [BMI] 50.0-59.9, adult; E55.9 Vitamin D deficiency, unspecified; I10 Essential (primary) hypertension; M17.0 Bilateral primary osteoarthritis of knee; R73.01 Impaired fasting glucose; F41.8 Other specified anxiety disorders

== ENCOUNTER → 2025-03-31 12:29 | Outpatient (BNVA) | payer MEDICARE, MEDICAID, SELFPAY | PROVIDERS: PCP Internal Medicine; Visit Provider Internal Medicine | DX: Z00.01 Encounter for general adult medical examination with abnormal findings (principal); M85.852 Other specified disorders of bone density and structure, left thigh; E55.9 Vitamin D deficiency, unspecified; M17.0 Bilateral primary osteoarthritis of knee; I10 Essential (primary) hypertension; R73.01 Impaired fasting glucose; E66.01 Morbid (severe) obesity due to excess calories; F41.8 Other specified anxiety disorders; Z68.43 Body mass index [BMI] 50.0-59.9, adult; Z71.3 Dietary counseling and surveillance | CPT/HCPCS: 96127; 99397 ==

== ENCOUNTER 2025-04-21 12:58 | Outpatient (AMB) | payer MEDICARE, MEDICAID, SELFPAY ==
--- NOTE | 2025-04-21 13:15 | MHC.OFFVIS ---
Vital Signs 04/21/25 13:17 Height 5 ft 6 in Weight 329 lb BMI 53.1 BP 134/60 Blood Pressure Location Lt brachial Position Sitting Pulse 99 Pulse Source Pulse Oximeter Intake Visit Reasons: 9 month follow up Barrel Washer Required: No Allergies codeine [CODEINE] Allergy (Severe, Verified 04/21/25 13:19) NAUSEA & SEVERE VOMITING, stomach upset Medication List - Last Reconciled 04/21/25 by Roseanne Newton NP-C cholecalciferol (vitamin D3) 1,250 mcg PO QWEEK 3 months citalopram 20 mg PO DAILY dicyclomine 10 mg PO QID PRN glucosamine HCl PO lisinopril 40 mg PO DAILY nystatin 1 appl topical BID PRN HPI HPI 9 month follow up: Details: Marcelino is a 69-year-old female with past medical history of morbid obesity, hypertension, impaired fasting glucose, obstructive sleep apnea, untreated, shortness of breath with exertion who presents for follow-up. Today she reports that she continues to have some shortness of breath with activity but her symptom has been stable. No shortness of breath at rest, PND, orthopnea, pitting edema. She denies any chest discomfort, at rest or with activity. She has no lightheadedness, presyncope, syncope, falls. She tells me she has been going to the [employer] swimming 3 times weekly she tolerates very well. She ambulates with a wheeling walker. She is not able to tolerate a CPAP mask. She has been taking all her meds as directed. [facility], LATER [facility] Medical History Vitamin D deficiency Pruritic intertrigo Pulmonary nodule, left History of COVID-19 Mixed anxiety and depressive disorder Morbid obesity due to excess calories Cataracts, bilateral Osteopenia of left hip Impaired fasting glucose DENISE (obstructive sleep apnea) Essential hypertension Surgical History Hx of gastric bypass History of total hip replacement Family History Father No problems noted. Mother No problems noted. Maternal Aunt Mental health disorder Social History Housing: House Alcohol intake: never Patient Tobacco Use Status: Never used Tobacco e-Cigarette/Vaping Use: Never Used service: No Current occupational status: retired Cognitive needs: No Hearing needs: No Vision needs: No Review of Systems Const All systems reviewed & are unremarkable except as noted in HPI and below ENT Denies dizziness Card Denies chest pain, Denies chest pain at rest, Denies chest pain with activity, Denies rapid heart rate, Denies pedal edema, Denies edema, Denies leg edema, Denies lightheadedness, Denies palpitations, Denies dyspnea, Denies dyspnea on exertion and Denies orthopnea Resp Denies cough, Denies dyspnea and Denies dyspnea on exertion GI Denies hematochezia and Denies change in stool character Musc Details: uses walker for balance Denies abnormal gait, Denies limited range of motion, Denies muscle cramps, Denies muscle weakness, Denies numbness, Denies radiating pain into limb, Denies stiffness and Denies tingling Neuro Denies abnormal gait, Denies dizziness, Denies numbness and Denies tingling Endo Denies palpitations Physical Exam Vital Signs: Last Vital Signs Pulse 99 04/21/25 13:17 BP 134/60 04/21/25 13:17 BMI result Body Mass Index 53.1 Const Other: morbidly obese General: cooperative, comfortable and no acute distress Orientation/consciousness: patient oriented x3 Neck Neck: Yes normal visual inspection Resp Effort & Inspection: normal respiratory effort Auscultation: clear to auscultation bilaterally, no crackles, no rales, no rhonchi and no wheezes Cardio Rate: regular rate Rhythm: regular rhythm Heart sounds: S1 normal heart sound present, S2 normal heart sound present, no murmurs and no rubs Skin General skin exam: no rashes or lesions noted Neuro General: patient oriented x3 Extrem General: Yes normal to inspection, No no pedal edema and No calf tenderness Psych Appearance: grossly normal Mental Status: mental status grossly normal Speech and movement: Normal speech and movement present Assessment & Plan Assessment & Plan (1) Shortness of breath: Code(s): R06.02 - Shortness of breath Category: Medical Plan: History of shortness of breath with exertional activities which is likely multifactorial in the setting of morbid obesity, deconditioning, hypertension, LVH and diastolic dysfunction. Last echocardiogram was done on 07/04/2023 showing EF greater than 70%, severe increase in the LV wall thickness, normal valves, grade 1 diastolic dysfunction. She does not appear fluid overloaded on examination though her obesity makes this more challenging. With her severe LVH it is very important keep her blood pressure well controlled. Blood pressure today 134/80. Continue lisinopril 40 mg daily. Metoprolol previously added and she did not like how she felt on it. Low-salt diet reviewed. Benefits of weight loss discussed. Continue activity as tolerated. Labs 02/25/2025 shows potassium 4.4, creatinine 0.84. Will update echo prior to next visit. Cardiology follow-up in 6 months, sooner if needed (2) Irregular heartbeat: Comment: Atrial ectopy Code(s): I49.9 - Cardiac arrhythmia, unspecified Category: Medical Plan: Holter monitor done on 07/04/2023 for 3 days shows sinus rhythm with average heart rate 71, occasional PACs, ectopic atrial events, longest 10 beats, symptoms correlate with sinus rhythm or sinus tach. Intolerant to Low-dose metoprolol. No concerning palpitations at this time. Reviewed reduction in caffeinated beverages. Will continue to follow (3) DENISE (obstructive sleep apnea): Comment: not using CPAP Code(s): G47.33 - Obstructive sleep apnea (adult) (pediatric) Category: Medical Plan: Not able to tolerate CPAP (4) Essential hypertension: Code(s): I10 - Essential (primary) hypertension Category: Medical Plan: Blood pressure goal less than 130/80, controlled. Continue lisinopril. (5) Morbid obesity due to excess calories: Code(s): E66.01 - Morbid (severe) obesity due to excess calories Category: Medical Plan: Continue exercise and efforts towards weight loss. (6) LVH (left ventricular hypertrophy): Code(s): I51.7 - Cardiomegaly Category: Medical Plan: As above Plan We discussed the patient's ongoing cardiovascular management and addressed the current treatment plan for maintaining her blood pressure using lisinopril, noting her improvement with a BP of 134/60 mmHg. We reviewed the importance of controlling blood pressure to prevent worsening hypertrophy and diastolic dysfunction. She no longer takes metoprolol, but her current regimen is effective. Nella was counseled on recognizing symptoms that necessitate immediate medical evaluation, such as new chest pain or worsening shortness of breath. We agreed on repeating an echocardiogram before her next cardiology appointment. Nella was informed of the importance of dietary and lifestyle modifications, especially regarding salt intake and staying active with exercise. Orders: Orders CA echo transthoracic complete 5 Months I51.7 - Cardiomegaly Patient Instructions: - Continue taking lisinopril as prescribed for blood pressure control. - Avoid added salt in your diet. - Exercise regularly, such as swimming three times a week. - Seek urgent medical care if you develop new chest pain or significant changes in breathlessness. - Attend follow-up echocardiogram and cardiology appointment as scheduled. Patient was informed and verbally consented to the use of an ambient scribe for clinic note documentation during this visit. Visit time spent on chart review, interview, assessment, orders, documentation. Coding Level of Care Code Est Pt Level 4 (07295) Complex EM visit Add On G2211 Diagnoses Shortness of breath R06.02 Irregular heartbeat I49.9 DENISE (obstructive sleep apnea) G47.33 Essential hypertension I10 Morbid obesity due to excess calories E66.01 LVH (left ventricular hypertrophy) I51.7 Time Spent (min) 32
[2025-04-21 13:17] VITALS: BP 134/60; PULSE 99; BMI 53.1
--- OUTSIDE RECORDS SUMMARY | 2025-04-21 14:39 | XMS_ITS | Clinical Summary ---
Author Organization [facility] ity Address [address] [place] [address] Care Team Providers Care Service Center Representative Name Role Phone Stephy Pichardo MD Primary Care Provider [phone] Social History Tobacco Use Types Packs/Day Years [...] age to complete this topic Care Teams Service Center Representative Relationship Specialty Start Date End Date Stephy Pichardo MD [address] [place] [address] PCP - General 03/07/1998
== END 2025-04-21 13:48 | disposition home or self-care (01) ==
LOC: HO.HCS 12:59
PROVIDERS: PCP Internal Medicine; Visit Provider Nurse Practitioner Family
DX: R06.02 Shortness of breath (principal); I49.9 Cardiac arrhythmia, unspecified; G47.33 Obstructive sleep apnea (adult) (pediatric); I10 Essential (primary) hypertension; E66.01 Morbid (severe) obesity due to excess calories; I51.7 Cardiomegaly
CPT/HCPCS: 99214; G2211

== ENCOUNTER → 2025-04-21 12:58 | Outpatient (BNVA) | payer MEDICARE, MEDICAID, SELFPAY | PROVIDERS: PCP Internal Medicine; Visit Provider Nurse Practitioner Family | DX: R06.02 Shortness of breath (principal); I49.9 Cardiac arrhythmia, unspecified; I10 Essential (primary) hypertension; I51.7 Cardiomegaly; G47.33 Obstructive sleep apnea (adult) (pediatric); E66.01 Morbid (severe) obesity due to excess calories; Z68.43 Body mass index [BMI] 50.0-59.9, adult | CPT/HCPCS: 99212 ==

== ENCOUNTER → 2025-05-28 08:47 | Outpatient (REF) | payer MEDICARE, MEDICAID, SELFPAY ==
--- NOTE | 2025-05-28 08:51 | CA_ITS ---
Transthoracic Echocardiogram Amended Patient (Last, First, Middle): Marcelino Cross M Gender: Female Date of : 1955 Age: 70 Procedure Date: 05/28/2025 Procedure Type: Transthoracic Echocardiogram Location: OP Height: 167.64 cm Weight: 149.23 kg BSA: 2.47 m2 Heart Rate: bpm BP: 134 / 60 mmHg Animal Husbandry Professor: VINCENT Referring MD: Roseanne Newton OCEANOLOGY TEACHER-C Symptoms: I51.7 - Cardiomegaly Study Quality: Technically Difficult, contrast ECG Rhythm: Sinus Conclusions: - The left ventricular systolic function is hyperdynamic. The visually estimated ejection fraction is >70%. - No obvious valvular pathology seen on this study. - There is mild dilatation of the ascending aorta measuring 4.00 cm. Findings Procedure Information The study quality is limited by patients body habitus. Left Ventricle Normal left ventricular cavity size. There is mildly increased left ventricular wall thickness. The left ventricular systolic function is hyperdynamic. The visually estimated ejection fraction is >70%. There is no evidence of regional wall motion abnormalities. Diastolic function is normal for age. Right Ventricle Normal right ventricular cavity size and systolic function. Atria Both atria are normal in size. Aortic Valve The aortic valve was not well visualized. There is no aortic valve stenosis. There is no aortic valve regurgitation. Mitral Valve The mitral valve was not well visualized. There is no mitral valve regurgitation. There is no mitral valve stenosis. Pulmonic Valve The pulmonic valve is likely normal. Tricuspid Valve There is trace tricuspid valve regurgitation. There is no evidence of pulmonary hypertension. Great Vessels There is mild dilatation of the ascending aorta measuring 4.00 cm. Venous The inferior vena cava is normal in size and collapses less than 50% with inspiration. Pericardium/Pleural There is no evidence of pericardial effusion. Prior Study Comparison Changes noted compared to prior study dated: 07/04/2023. Slight increase in ascending aortic size. Recommendations, Care & Conclusions No obvious valvular pathology seen on this study. Measurements 2D Linear Measurements IVSd: 1.22 0.6-0.9/0.6-1.0 cm LVIDd: 4.54 3.9-5.3/4.2-5.9 cm LVIDd Index: 1.84 2.4-3.2/2.2-3.1 cm/m2 LVIDs: 1.78 2.0-3.6 cm LVPWd: 1.23 0.7-1.1 cm LA Diam: 3.50 2.7-3.8/3.0-4.0 cm LAIDs Index: 1.42 1.5-2.3 cm/m2 LV Mass: 257.87 67-162/88-224 g LV Mass Index: 104.40 43-95/49-115 g/m2 LVOT Diam: 2.00 3.0+(-)1.3 cm 2D Systolic Function EF 4C: 70.50 >55% EF 2C: 75.60 >55% EF BiP: 72.70 >55% Mitral Valve MV Pk E: 0.75 MV PK A: 1.11 MV Decel Time: 247.00 E/A: 0.70 E'Medial: 5.66 E/E' Med: 13.20 PHT: 72.00 MVA PHT: 3.06 Decel Mercer: 3.02 Aortic Valve AoV Pk Wilbert: 1.98 AoV Mn Wilbert: 1.24 AoV VTI: 0.34 AoV Pk Grad: 16.00 Aov Mn Grad: 7.00 GEOVANNA Cont.VTI: 2.52 LVOT LVOT Pk Wilbert: 1.47 LVOT Mn Wilbert: 0.98 LVOT VTI: 0.27 LVOT Pk Grad: 9.00 LVOT Mn Grad: 4.00 LVOT Diam: 2.00 LVOT Area: 3.14 Diastolic Function MV Pk E: 0.75 MV Pk A: 1.11 E/A: 0.70 E'Medial: 5.66 E/E' Med: 13.20 Right Ventricle TVS' Wilbert: 12.30 Tricuspid Valve RA Press: 15.00 Great Vessels Aorta Sinus of Valsalva: 3.49 2.0-3.5 cm Ao Asc: 4.00 2.1-3.4 cm Updated in Other Vendor System with Status of Final Willie Melissa MD electronically signed on 05/29/2025 3:39:40 PM with status of Final
--- OUTSIDE RECORDS SUMMARY | 2025-05-28 08:54 | XMS_ITS | Patient Health Record ---
Author Organization [facility] Address [address] [place] [id number] Care Team Providers Care Head Of Marketing Adometry Name Role Phone Bernard PATEL, Yasmin Primary Care Provider Magdy Rob [phone] Allergies Allergen (clinical drug ingredient) Drug/Non Drug Allergy documented on EMR Reaction Allergy Type Onset Date Status Codeine Phosphate nausous Drug Allergy Active Reason For Referral No Information Medications Medication SIG (Take, Route, Frequency, Duration) Notes Start Date End Date Status Citalopram Hydrobromide 20 MG 1 tablet Orally Once a day Active Ibuprofen 200 MG 1 tablet as needed O rally prn Active Calcium + D3 600-200 MG-UNIT 1 tablet with a meal Orally Once a day for 30 day(s) Active Imodium A-D 2 MG 1 tablet as needed O rally as needed Active Dicyclomine HCl 10 MG TAKE 1 TO 2 CAPSUL ES BY MOUTH EVERY 6 HOURS NEEDED FOR ABDOMINAL CRAMPS for 25 Active Multivitamin Adults - as directed Orally Active Glucosamine HCl 1000 MG 1 tablet after a meal Orally Once a day for joint relief Active Lisinopril 10 MG 1 tablet Orally Once a day Active Immunizations Vaccine Route Administration Date Status Comme nts Influenza Unknown 08/13/2019 Administered Social History Alcohol Screen Question Answer Notes Did you have a drink containing alcohol in the p ast year? No Points 0 Interpretation Negative Section Notes: Nonsmoker; no sig alcohol Nonsmoker; no sig alcohol Problems Problem Type SNOMED Code ICD Code Onset Dates Problem Status W/U Status Risk Notes Problem 477135431 Encounter for screening for malignant neoplasm of colon (Z12.11) Active confirmed Problem Screening for malignant neoplasm of rectum (125632813) Encounter for screening for malignant neoplasm of rectum (Z12.12) Active confirmed Problem 66943186 Preprocedural examination (Z01.818) Active confirmed Problem [id number] Encounter for long-term (current) use of NSAIDs (Z79.1) Active confirmed Problem 41465006 Irritable bowel syndrome with both constipation and diarrhea (K58.2) Active confirmed Plan Of Treatment Pending Test Test Name Order Date LIVER PROFILE 02/13/2020 CRP 02/13/2020 CBC w DIFF 02/13/2020 SED RATE (ESR) 02/13/2020 CELIAC PANEL #10 02/13/2020 Future Test Test Name Order Date COLONOSCOPY 09/23/2015 Insurance Providers Payer Name Payer Address Payer Phone Subscriber Number Group Number Insured Name Patient Relationship to Insured Coverage Start Date Coverage End Date MEDICARE OF [place] [address] [place]HE[place] [id number] WILMAR BROWN Self - patient is the insured [facility] [address] [place] [address] [id number] WILMAR BROWN Self - patient is the insured Medical (General) History Medical History History ICD Code Screening Colonosocpy 01-13-20 04--no colitis, no polyps--only internal hemorrhoids; biopsies neg. for microscopic colitis Denies ME,DM,CVA,Lung disease,renal dise ase HTN Depression Back pain Sleep apnea Neg. screening colonoscopy in 03/2016 IBS Anxiety Surgical History Surgery Date(Month/Year) Benign breast biopsies Total Right hip replacement 12/[address] Ramos-lost 50# 2018
--- OUTSIDE RECORDS SUMMARY | 2025-05-28 08:54 | XMS_ITS | Clinical Summary ---
Author Organization [facility] ity Address [address] [place] [address] Care Team Providers Care Bench Jeweler Name Role Phone Stephy Pichardo MD Primary Care Provider [phone] Social History Tobacco Use Types Packs/Day Years [...] - 2023-2 5 season) 2024 Influenza Vaccine (#1) 2025 RSV Immunization Adult Patie nts (1 [...] age to complete this topic Care Teams Bench Jeweler Relationship Specialty Start Date End Date Stephy Pichardo MD [address] [place] [address] PCP - General 03/07/1998
== END ==
LOC: HO.CARD 08:47
PROVIDERS: PCP Internal Medicine; Visit Provider Nurse Practitioner Family
DX: I51.7 Cardiomegaly (principal)
CPT/HCPCS: 93306; Q9957

== ENCOUNTER → 2025-05-28 08:51 | Outpatient (BNV) | payer MEDICARE, MEDICAID, SELFPAY | PROVIDERS: PCP Internal Medicine; Visit Provider Internal Medicine | DX: I51.89 Other ill-defined heart diseases (principal); I77.810 Thoracic aortic ectasia | CPT/HCPCS: 93306 ==

== ENCOUNTER 2025-09-30 09:06 | Outpatient (REF) | payer MEDICARE, MEDICAID, SELFPAY ==
[2025-09-30 11:08] LABS: Alanine Aminotransferase 7 U/L (0-31); Anion Gap 16 (12-20); Aspartate Amino Transferase 17 U/L (5-31); Blood Urea Nitrogen 17 mg/dL (9-16); Calcium 9.6 mg/dL (8.4-10.2); Carbon Dioxide 23 mmol/L (22-29); Chloride 108 mmol/L (96-108); Cholesterol 179 mg/dL (<200); Estimated Glomerular Filt Rate > 60; HDL Cholesterol 58 mg/dL (>40); Potassium 4.7 mmol/L (3.3-5.1); Sodium 142 mmol/L (135-145); Triglycerides 73 mg/dL (<150)
== END 2025-09-30 09:07 | disposition home or self-care (01) ==
LOC: HO.HMGCLDS 09:06
PROVIDERS: PCP Internal Medicine; Visit Provider Internal Medicine
DX: Z00.00 Encounter for general adult medical examination without abnormal findings (principal); E55.9 Vitamin D deficiency, unspecified; F41.8 Other specified anxiety disorders; E66.01 Morbid (severe) obesity due to excess calories; M85.852 Other specified disorders of bone density and structure, left thigh; R73.01 Impaired fasting glucose; M17.0 Bilateral primary osteoarthritis of knee; I10 Essential (primary) hypertension
CPT/HCPCS: 36415; 80048; 80061; 82306; 83036; 84450; 84460

== ENCOUNTER 2025-10-16 09:50 | Outpatient (AMB) | payer MEDICARE, MEDICAID, SELFPAY ==
[2025-10-16 10:25] VITALS: BP 134/64; PULSE 107; RESP 18; TEMP 36.6; O2SAT 97; BMI 55.4
--- NOTE | 2025-10-16 10:25 | MHC.PC.OV ---
Vital Signs 10/16/25 10:25 Height 5 ft 6 in Weight 343 lb BMI 55.4 BP 134/64 Blood Pressure Location Lt brachial Position Sitting Respiration 18 Pulse 107 H Pulse Source Pulse Oximeter Temp 97.8 F Temp Source Oral Pulse Oximetry (%) 97 Oxygen Delivery Method Room Air Intake Visit Reasons: f/u labs Intake Note: Pt is here today to discuss recent lab results Jawbone Puller Required: No Allergies codeine (CODEINE) Allergy (Severe, Verified 10/16/25 10:25) NAUSEA & SEVERE VOMITING, stomach upset Medication List - Last Reconciled 10/16/25 by Yasmin Wagner MD cholecalciferol (vitamin D3) 1,250 mcg PO QWEEK 3 months citalopram 20 mg PO DAILY [Diarrhea Probiotics with low Fodmap prebiotics by Doc digest 1 cap PO DAILY] dicyclomine 10 mg PO QID PRN glucosamine HCl PO lisinopril 40 mg PO DAILY nystatin 1 appl topical BID PRN Tobacco use date assessed: 10/16/25 Fall risk assessment: No Falls in past year Last assessed Fall Risk: 10/16/25 Dental Screening Dental Screen Date: 10/16/25 Did you have a dental visit in the last 12 months?: Yes Did you have a dental problem in the last 6 months where you did not have access to dental care?: No Was dental information given to patient?: Patient has dentist [facility] Medical History (Updated 10/16/25 @ 11:04 by Yasmin Wagner MD) IBS (irritable bowel syndrome) Vitamin D deficiency Pruritic intertrigo Pulmonary nodule, left History of COVID-19 Mixed anxiety and depressive disorder Morbid obesity due to excess calories Cataracts, bilateral Osteopenia of left hip Impaired fasting glucose DENISE (obstructive sleep apnea) Essential hypertension Surgical History Hx of gastric bypass History of total hip replacement Family History Father No problems noted. Mother No problems noted. Maternal Aunt Mental health disorder Social History Housing: House Alcohol intake: never Patient Tobacco Use Status: Never used Tobacco e-Cigarette/Vaping Use: Never Used service: No Current occupational status: retired Cognitive needs: No Hearing needs: No Vision needs: No Questionnaire Thrive Questionnaire Date Thrive assessed: 03/31/25 I am a: Patient What is your living situation today?: I have a steady place to live Within the past 12 months, did the food you bought not last and you didn't have the money to get more?: Never true Within the past 12 months, did you worry whether your food would run out before you got money to buy more?: Never true Do you have trouble paying for medicines?: No Do you have trouble getting transportation to medical appointments?: No Do you have trouble paying your heating and electricity bill?: No Do you have trouble taking care of your child, family member or friend?: No Do you have trouble with day-to-day activities such as bathing, preparing meals, shopping, managing finances, etc.?: No Are you currently unemployed and looking for a job?: No Are you interested in more education?: No Please select the resources that you would like help with: None Currently or been in a relationship where the following occur: No concerns reported THRIVE Score: 0 IRAIS-7 AMB Questionnaire IRAIS-7 Date IRAIS - 7 assessed: 03/31/25 Source: Developed by Drs. Magdy Carmen, Keri Connor, Jose Boyd and colleagues, with an educational kelsey from [employer]. Physical exam (Primary Care) Vital Signs: Last Vital Signs Temp 97.8 F 10/16/25 10:25 Pulse 107 H 10/16/25 10:25 Resp 18 10/16/25 10:25 BP 134/64 10/16/25 10:25 Pulse Ox 97 10/16/25 10:25 Oxygen Delivery Method Room Air 10/16/25 10:25 BMI result Body Mass Index 55.4 Tobacco/Smoking Status: Tobacco use Status Tobacco use date assessed 10/16/25 10/16/25 10:29 Patient Tobacco Use Status Never used Tobacco 10/16/25 10:29 e-Cigarette/Vaping Use Never Used 10/16/25 10:29 Thrive Assessment: Date of Thrive Assessment Date Thrive assessed 03/31/25 10/16/25 10:29 Currently or been in a relationship where the following occur: No concerns reported Immunizations pneumoc 20-bhupendra conj-dip cr(PF) 0.5 mL IM syringe Performing Provider: Yasmin Wagner MD Performing Location: [facility] [place] [facility] Administered by: Gabriela Barrios CMA on 10/16/25 11:16 Dose Route Admin Location Dispensed Lot Number Expiration Date NDC Linotyper 0.5 mL IM Left Deltoid 0.5 mL [id number] 09/12/26 5639-4564-61 WYETH/PFIZER Total Dispensed Waste 0.5 mL 0 % VIS Given Date VIS Provided VIS Publication Date 10/16/25 Single Vaccine 25 Eligibility Eligibility Date Funding Source Not [facility] Eligible 10/16/25 Private Results Reviewed Results Reviewed: Name: Marcelino Cross Age/Sex: 70/F : 1955 Unit#: [id number] Attend Dr: Yasmin Wagner MD Re09/30/25 Status: DEP REF Location: [facility] Disch: SPEC : [id number] SERG: 09/30/25 STATUS: COMP REQ : [id number] RECD: 09/30/[address]: Yasmin Wagner MD COMP: 09/30/25 ENTERED: 09/30/[address]: ORDERED: Met Prof Fast, AST, ALT, Lipid Panel, Vitamin D 25-OH Test Result Flag Reference Sodium 142 135-145 mmol/L Potassium 4.7 3.3-5.1 mmol/L CL 108 96-108 mmol/L CO2 23 22-29 mmol/L Gap 16 12-20 BUN 17 H 9-16 mg/dL Creat 0.83 0.5-1.4 mg/dL eGFR > 60 Chronic Kidney Disease: Estimated GFR < 60 mL/min/1.73m2 Severe Kidney Disease: Estimated GFR < 15 mL/min/1.73m2 FBS 115 H 60-99 mg/dL A fasting glucose from 100-125 mg/dl is considered impaired (pre-diabetes). CA 9.6 8.4-10.2 mg/dL AST (GOT) 17 5-31 U/L ALT (GPT) 7 0-31 U/L Triglyceride 73 <150 mg/dL Desirable Triglyceride: less than 150 mg/dL Borderline High Triglyceride 150-199 mg/dL High Triglyceride: 200-499 mg/dL Very High Triglyceride: greater than or equal to 5OO mg/dL Cholesterol 179 <200 mg/dL Desirable Cholesterol: less than 200 mg/dL Borderline High Cholesterol: 200-239 mg/dL High Cholesterol: greater than 239 mg/dL LDL Calculated 107 H <100 mg/dL Desirable LDL: less than 100 mg/dL Near Optimal/Above Optimal LDL: 110-129 mg/dL Borderline High LDL: 130-159 mg/dL High LDL: 160-189 mg/dL Very High LDL: greater than or equal to 190 mg/dL HDL 58 >40 mg/dL Desirable HDL: greater than 40 mg/dL Note: This HDL assay may give artificially low results in patients with liver disease. Vitamin D 25-OH 17.7 L >30 ng/mL Health Based Reference Values* < 20 ng/mL Deficient 20-30 ng/mL Insufficient > 30 ng/mL Sufficient Laboratory Tests 09/30/25 09:25 Estimat Average Glucose 117 Hemoglobin A1c % 5.7 Coding Level of Care Code Est Pt Level 4 (83555) Diagnoses Essential hypertension I10 Impaired fasting glucose R73.01 Vitamin D deficiency E55.9 Osteopenia of left hip M85.852 Morbid obesity due to excess calories E66.01 Mixed anxiety and depressive disorder F41.8 Need for pneumococcal 20-valent conjugate vaccination Z23 Assessment & Plan Assessment & Plan (1) Essential hypertension: Code(s): I10 - Essential (primary) hypertension Category: Medical (2) Impaired fasting glucose: Code(s): R73.01 - Impaired fasting glucose Category: Medical (3) Vitamin D deficiency: Code(s): E55.9 - Vitamin D deficiency, unspecified Category: Medical (4) Osteopenia of left hip: Code(s): M85.852 - Other specified disorders of bone density and structure, left thigh Category: Medical (5) Morbid obesity due to excess calories: Code(s): E66.01 - Morbid (severe) obesity due to excess calories Category: Medical (6) Mixed anxiety and depressive disorder: Code(s): F41.8 - Other specified anxiety disorders Category: Medical (7) Need for pneumococcal 20-valent conjugate vaccination: Code(s): Z23 - Encounter for immunization Orders: Orders Lipid Panel 04/18/26 E55.9 - Vitamin D deficiency, unspecified, E66.01 - Morbid (severe) obesity due to excess calories, F41.8 - Other specified anxiety disorders, I10 - Essential (primary) hypertension, K58.9 - Irritable bowel syndrome, unspecified, M85.852 - Other specified disorders of bone density and structure, left thigh, R73.01 - Impaired fasting glucose Hemoglobin A1c 04/18/26 E55.9 - Vitamin D deficiency, unspecified, E66.01 - Morbid (severe) obesity due to excess calories, F41.8 - Other specified anxiety disorders, I10 - Essential (primary) hypertension, K58.9 - Irritable bowel syndrome, unspecified, M85.852 - Other specified disorders of bone density and structure, left thigh, R73.01 - Impaired fasting glucose Basic Metabolic Panel Fasting 04/18/26 E55.9 - Vitamin D deficiency, unspecified, E66.01 - Morbid (severe) obesity due to excess calories, F41.8 - Other specified anxiety disorders, I10 - Essential (primary) hypertension, K58.9 - Irritable bowel syndrome, unspecified, M85.852 - Other specified disorders of bone density and structure, left thigh, R73.01 - Impaired fasting glucose Vitamin D 25-OH Total 04/18/26 E55.9 - Vitamin D deficiency, unspecified, E66.01 - Morbid (severe) obesity due to excess calories, F41.8 - Other specified anxiety disorders, I10 - Essential (primary) hypertension, K58.9 - Irritable bowel syndrome, unspecified, M85.852 - Other specified disorders of bone density and structure, left thigh, R73.01 - Impaired fasting glucose Complete Blood Count Auto Diff 04/18/26 E55.9 - Vitamin D deficiency, unspecified, E66.01 - Morbid (severe) obesity due to excess calories, F41.8 - Other specified anxiety disorders, I10 - Essential (primary) hypertension, K58.9 - Irritable bowel syndrome, unspecified, M85.852 - Other specified disorders of bone density and structure, left thigh, R73.01 - Impaired fasting glucose Pneumococcal 20 Immunization Today Z23 - Encounter for immunization Aspartate Amino Transferase 04/18/26 E55.9 - Vitamin D deficiency, unspecified, E66.01 - Morbid (severe) obesity due to excess calories, F41.8 - Other specified anxiety disorders, I10 - Essential (primary) hypertension, K58.9 - Irritable bowel syndrome, unspecified, M85.852 - Other specified disorders of bone density and structure, left thigh, R73.01 - Impaired fasting glucose Alanine Aminotransferase 04/18/26 E55.9 - Vitamin D deficiency, unspecified, E66.01 - Morbid (severe) obesity due to excess calories, F41.8 - Other specified anxiety disorders, I10 - Essential (primary) hypertension, K58.9 - Irritable bowel syndrome, unspecified, M85.852 - Other specified disorders of bone density and structure, left thigh, R73.01 - Impaired fasting glucose
--- OUTSIDE RECORDS SUMMARY | 2025-10-16 11:26 | XMS_ITS | Clinical Summary ---
Author Organization [facility] ity Address [address] [place] [address] Care Team Providers Care Motor Block Mechanic Name Role Phone Stephy Pichardo MD Primary Care Provider [phone] Social History Tobacco Use Types Packs/Day Years [...] 2003 Zoster Vaccines (1 of 2) 2003 Depression Screening 11/13/2024 COVID-19 Vaccine (1 - 2024-2 6 season) 2025 Influenza Vaccine (#1) 2025 RSV Immunization Adult [...] age to complete this topic Care Teams Motor Block Mechanic Relationship Specialty Start Date End Date Stephy Pichardo MD [address] [place] [address] PCP - General 03/07/1998
== END 2025-10-16 11:12 | disposition home or self-care (01) ==
LOC: HO.HMCC 09:51
PROVIDERS: PCP Internal Medicine; Visit Provider Internal Medicine
DX: Z23 Encounter for immunization (principal)

== ENCOUNTER → 2025-10-16 09:50 | Outpatient (BNVA) | payer MEDICARE, MEDICAID, SELFPAY | PROVIDERS: PCP Internal Medicine; Visit Provider Internal Medicine | DX: Z71.2 Person consulting for explanation of examination or test findings (principal); I10 Essential (primary) hypertension; R73.01 Impaired fasting glucose; E55.9 Vitamin D deficiency, unspecified; M85.852 Other specified disorders of bone density and structure, left thigh; F41.8 Other specified anxiety disorders; Z23 Encounter for immunization | CPT/HCPCS: 90471; 90677; 99212 ==

== ENCOUNTER 2025-11-03 09:48 | Outpatient (AMB) | payer MEDICARE, MEDICAID, SELFPAY ==
--- NOTE | 2025-11-03 10:17 | A.OFFVIS_ITS ---
Vital Signs 11/03/25 10:21 Height 5 ft 6 in BMI Reason not done Patient refused/unable BP 160/70 H Blood Pressure Location Lt brachial Position Sitting Pulse 97 Pulse Source Monitor Intake Visit Reasons: 6 mth w/ echo Intake Note: 6 wk f/up -echo Relocation Counselor Required: No Accompanied by: Self / Same As Patient Allergies codeine (CODEINE) Allergy (Severe, Verified 10/20/25 02:18) NAUSEA & SEVERE VOMITING, stomach upset Medication List - Last Reconciled 11/03/25 by HEIDI Mayberry cholecalciferol (vitamin D3) 1,250 mcg PO QWEEK 3 months citalopram 20 mg PO DAILY [Diarrhea Probiotics with low Fodmap prebiotics by Doc digest 1 cap PO DAILY] dicyclomine 10 mg PO QID PRN glucosamine HCl PO lisinopril 40 mg PO DAILY nystatin 1 appl topical BID PRN HPI HPI 6 mth w/ echo: Details: Marcelino is a 69-year-old female with past medical history of morbid obesity, hypertension, impaired fasting glucose, obstructive sleep apnea, untreated, shortness of breath with exertion who presents for follow-up. Today she reports that she continues to have some shortness of breath with activity but her symptom has been stable. No shortness of breath at rest, PND, orthopnea, pitting edema. She denies any chest discomfort, at rest or with activity. She has no lightheadedness, presyncope, syncope, falls. She goes to the [facility] swimming up to 3 times weekly. She ambulates with a wheeling walker. She is not able to tolerate a CPAP mask. She feels head cold symptoms for the last few days, with ear blocking and sinus congestion, no fevers. She has been taking all her meds as directed. [facility] Medical History IBS (irritable bowel syndrome) Vitamin D deficiency Pruritic intertrigo Pulmonary nodule, left History of COVID-19 Mixed anxiety and depressive disorder Morbid obesity due to excess calories Cataracts, bilateral Osteopenia of left hip Impaired fasting glucose DENISE (obstructive sleep apnea) Essential hypertension Surgical History Hx of gastric bypass History of total hip replacement Family History Father No problems noted. Mother No problems noted. Maternal Aunt Mental health disorder Social History Housing: House Alcohol intake: never Patient Tobacco Use Status: Never used Tobacco e-Cigarette/Vaping Use: Never Used service: No Current occupational status: retired Cognitive needs: No Hearing needs: No Vision needs: No Review of Systems Const All systems reviewed & are unremarkable except as noted in HPI and below Denies chills, Denies fatigue, Denies fever(s), Denies frequent falls, Denies weakness, Denies weight gain and Denies weight loss ENT Denies dizziness Card Denies chest pain, Denies leg edema, Denies lightheadedness, Denies palpitations, Reports dyspnea and Reports dyspnea on exertion Resp Denies cough, Reports dyspnea and Reports dyspnea on exertion GI Denies hematochezia Musc Denies abnormal gait, Denies muscle weakness, Denies numbness, Denies radiating pain into limb and Denies tingling Neuro Denies abnormal gait, Denies dizziness, Denies frequent falls, Denies numbness, Denies tingling and Denies weakness Endo Denies fatigue and Denies palpitations Physical Exam Vital Signs: Last Vital Signs Pulse 97 11/03/25 10:21 BP 160/70 H 11/03/25 10:21 Const Other: morbidly obese General: cooperative, comfortable and no acute distress Orientation/consciousness: patient oriented x3 Neck Neck: Yes normal visual inspection Resp Effort & Inspection: normal respiratory effort Auscultation: clear to auscultation bilaterally, no crackles, no rales, no rhonchi and no wheezes Cardio Rate: regular rate Rhythm: regular rhythm Heart sounds: S1 normal heart sound present, S2 normal heart sound present, no murmurs and no rubs Skin General skin exam: no rashes or lesions noted Neuro General: patient oriented x3 Extrem General: Yes normal to inspection, No no pedal edema and No calf tenderness Psych Appearance: grossly normal Mental Status: mental status grossly normal Speech and movement: Normal speech and movement present Office Procedures EKG Details: Today, read by me, normal sinus rhythm, nonspecific T wave abnomalities, rate 97, Qtc 441ms [id number], Complete Assessment & Plan Assessment & Plan (1) Shortness of breath: Code(s): R06.02 - Shortness of breath Category: Medical Plan: History of shortness of breath with exertional activities which is likely multifactorial in the setting of morbid obesity, deconditioning, hypertension, LVH and diastolic dysfunction. Last echocardiogram 05/28/25 showing EF >70%, mild LVH, no valve or regional wall motion abnormalities, diastolic function is normal, ascending aorta 4 cm. Degree of LVH has improved from prior echo in 2022. Blood pressure today 132/62 when checked by me. Continue lisinopril 40 mg daily. Metoprolol previously added and she did not like how she felt on it. Low-salt diet reviewed. Benefits of weight loss discussed. Continue activity as tolerated. Cardiology follow-up in 1 yr sooner if needed (2) Irregular heartbeat: Comment: Atrial ectopy Code(s): I49.9 - Cardiac arrhythmia, unspecified Category: Medical Plan: Holter monitor done on 07/04/2023 for 3 days shows sinus rhythm with average heart rate 71, occasional PACs, ectopic atrial events, longest 10 beats, symptoms correlate with sinus rhythm or sinus tach. Intolerant to Low-dose metoprolol. No concerning palpitations at this time. EKG today, SR, rate 97. Reviewed good hydration and limit caffeinated beverages. (3) DENISE (obstructive sleep apnea): Comment: not using CPAP Code(s): G47.33 - Obstructive sleep apnea (adult) (pediatric) Category: Medical Plan: Not able to tolerate CPAP. Untreated sleep apnea puts her at higher risk of AF. (4) Essential hypertension: Code(s): I10 - Essential (primary) hypertension Category: Medical Plan: Blood pressure goal less than 130/80. Initially elevated at 160/70 - recheck done by me later in visit 132/62. Continue lisinopril. (5) Morbid obesity due to excess calories: Code(s): E66.01 - Morbid (severe) obesity due to excess calories Category: Medical Plan: Continue exercise and efforts towards weight loss. (6) LVH (left ventricular hypertrophy): Code(s): I51.7 - Cardiomegaly Category: Medical Plan: As above (7) Ascending aorta dilatation: Code(s): I77.810 - Thoracic aortic ectasia Category: Medical Plan: Recent echo showing ascending aorta mildly dilated at 4 cm. Blood pressure controlled. Will recheck an echocardiogram prior to next visit. Plan I informed the patient that her heart ultrasound from May showed a strong heart and normally functioning valves. We discussed the mild dilation of her aorta at 4.0 cm and emphasized the importance of maintaining good blood pressure control. I explained that a repeat echocardiogram is not necessary at this time as this finding does not change quickly. I advised her that there are no clear cardiac findings to explain her shortness of breath and encouraged her to remain active to build her tolerance. I reassured her that her overall heart condition appears stable. We agreed to a follow-up in one year, with a repeat heart ultrasound to be scheduled before that appointment. I informed her that the office will call to schedule the ultrasound when it gets closer to that time. Orders: Orders CA echo transthoracic complete 1 Year I51.7 - Cardiomegaly, I77.810 - Thoracic aortic ectasia Patient Instructions: - It is important to keep your blood pressure well-controlled because of the slight enlargement of your aorta, the main artery from your heart and the LVH. - Your shortness of breath does not appear to be related to your heart. - Try to stay active to build your tolerance and help improve the shortness of breath. - To help with your cold, please drink plenty of water and rest. - Please schedule a follow-up appointment for one year from now. - You will need another heart ultrasound (echocardiogram) before your next visit. - Our office will call you to schedule the heart ultrasound when it gets closer to the time of your next appointment. Patient was informed and verbally consented to the use of an ambient scribe for clinic note documentation during this visit. Visit time spent on chart review, interview, assessment, orders, documentation. Coding Level of Care Code Add On Preventative Visit Only Diagnoses Shortness of breath R06.02 Irregular heartbeat I49.9 DENISE (obstructive sleep apnea) G47.33 Essential hypertension I10 Morbid obesity due to excess calories E66.01 LVH (left ventricular hypertrophy) I51.7 Ascending aorta dilatation I77.810 CPT Codes EKG - CPT: 38231-[id number], Complete ([id number]) Time Spent (min) 28
[2025-11-03 10:21] VITALS: BP 160/70; PULSE 97
--- OUTSIDE RECORDS SUMMARY | 2025-11-03 11:32 | XMS_ITS | Clinical Summary ---
Author Organization [facility] ity Address [address] [place] [address] Care Team Providers Care Pump Assembler Name Role Phone Stephy Pichardo MD Primary Care Provider [phone] Social History Tobacco Use Types Packs/Day Years [...] age to complete this topic Care Teams Pump Assembler Relationship Specialty Start Date End Date Stephy Pichardo MD [address] [place] [address] PCP - General 03/07/1998
--- OUTSIDE RECORDS SUMMARY | 2025-11-03 11:32 | XMS_ITS | Patient Health Record ---
Author Organization [facility] Address [address] [place] [address] Care Team Providers Care Head Mixer Name Role Phone Yasmin Wagner MD Primary Care Provider Magdy Rob [phone] Allergies Allergen (clinical drug ingredient) Drug/Non Drug Allergy documented on EMR Reaction Allergy Type Onset Date Status Codeine Phosphate nausous Drug Allergy Active Reason For Referral No Information Medications Medication SIG (Take, Route, Frequency, Duration) Notes Start Date End Date Status Citalopram Hydrobromide 20 MG Tablet 1 tablet Orally Once a day Active Ibuprofen 200 MG Tablet 1 tablet as need ed Orally prn Active Calcium + D3 600-200 MG-UNIT Tablet 1 tablet with a meal Orally Once a day; Duration: 30 day(s) Active Imodium A-D 2 MG Tablet 1 tablet as need ed Orally as needed Active Dicyclomine HCl 10 MG Capsule TAKE 1 TO 2 CAPSULES BY MOUTH EVERY 6 HOURS NEEDED FOR ABDOMINAL CRAMPS; Duration: 25 Active Multivitamin Adults - Tablet as directed Orally Active Glucosamine HCl 1000 MG Tablet 1 tablet after a meal Orally Once a day for joint relief Active Lisinopril 10 MG Tablet 1 tablet Orally Once a day Active Immunizations Vaccine Route Administration Date Status Comme nts Influenza Unknown 08/13/2019 Administered Social History Social History Drugs/Alcohol: Social Info Question Answer Notes Alcohol Screen Did you have a drink containing alcohol in the past year? 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 Section Notes: Nonsmoker; no sig alcohol Nonsmoker; no sig alcohol Problems Problem Type SNOMED Code ICD Code Onset Dates Problem Status W/U Status Risk Notes Problem Screening for malignant neoplasm of colon (849845140) Encounter for screening for malignant neoplasm of colon (Z12.11) Active confirmed Problem Screening for malignant neoplasm of rectum (884764318) Encounter for screening for malignant neoplasm of rectum (Z12.12) Active confirmed Problem Preprocedural examination (280418533848270) Preprocedural examination (Z01.818) Active confirmed Problem oysterman current use of non-steroidal anti-inflammatory drug (833534568037478) Encounter for long-term (current) use of NSAIDs (Z79.1) Active confirmed Problem Irritable bowel syndrome (51642781) Irritable bowel syndrome with both constipation and [...] Date MEDICARE OF [place] [address] [place] [address] [id number] WILMAR BROWN Self - patient is the insured MEDICAID OF [facility] [address] [place] [address] [id number] WILMAR BROWN Self - patient is the insured Medical (General) History Medical History History ICD Code Screening Colonosocpy 01-13-20 04--no colitis, no polyps--only internal hemorrhoids; biopsies neg. for microscopic colitis Denies VT,DM,CVA,Lung disease,renal dise ase HTN Depression Back pain Sleep apnea Neg. screening colonoscopy in 03/2016 IBS Anxiety Surgical History Surgery Date(Month/Year) Benign breast biopsies Total Right hip replacement 12/[address] Ramos-lost 50# 2018
== END 2025-11-03 10:44 | disposition home or self-care (01) ==
LOC: HO.HCS 09:49
PROVIDERS: PCP Internal Medicine; Visit Provider Nurse Practitioner Family
DX: R06.02 Shortness of breath (principal); I49.9 Cardiac arrhythmia, unspecified; G47.33 Obstructive sleep apnea (adult) (pediatric); I10 Essential (primary) hypertension; E66.01 Morbid (severe) obesity due to excess calories; I51.7 Cardiomegaly; I77.810 Thoracic aortic ectasia
CPT/HCPCS: 93010; 99213; G2211

== ENCOUNTER → 2025-11-03 09:48 | Outpatient (BNVA) | payer MEDICARE, MEDICAID, SELFPAY | PROVIDERS: PCP Internal Medicine; Visit Provider Nurse Practitioner Family | DX: R06.02 Shortness of breath (principal); I49.9 Cardiac arrhythmia, unspecified; G47.33 Obstructive sleep apnea (adult) (pediatric); I10 Essential (primary) hypertension; E66.01 Morbid (severe) obesity due to excess calories; I51.7 Cardiomegaly; I77.810 Thoracic aortic ectasia | CPT/HCPCS: 93005; 99212 ==